=== PATIENT | female | born 1955 | race Hispanic/Latino ===

== ENCOUNTER 2019-03-14 08:23 | Outpatient (CLI) | payer OTHER, SELFPAY ==
--- NOTE | 2019-03-24 19:02 | SLEEP_ITS ---
Split-Night Sleep Study. DATE OF STUDY: 03/14/2019 REASON FOR THIS STUDY: Sleep apnea. HISTORY: This patient is a 63-year-old female, 59 inches tall, weighing 155 pounds with a body mass index of 31.3. She has complaints of nasal allergies and uses Flonase, Zyrtec, and montelukast. She has been told she snores loudly. She is occasionally fatigued during the days. Some nights of sleep are worse than others. She occasionally snores and occasionally loud enough that others complain about it. She occasionally awakens at night with heartburn, belching, and coughing. She does not awaken at night short of breath. She occasionally has trouble sleeping with a cold. She does not gasp for breath at night, is not told by others that she has breathing problems, does not sweat excessively at night or notices her heart pounding irregularly at night. She occasionally falls asleep during the day. She does not fall asleep involuntarily or while driving. She does not have loss of muscle tone with strong emotion. She rarely has daytime difficulty due to excessive sleepiness. She does not feel paralyzed on waking or falling asleep. Occasionally has vivid dreamlike scenes upon awakening or falling asleep, is never afraid to go to sleep and denies nightmares. She occasionally remembers her dreams, has racing thoughts, occasionally feels sad, depressed, or anxious, occasionally has muscular tension and notices parts of her body jerking. She does not kick at night nor does she have crawly achy feelings in her legs. She rarely has leg pain at night. She denies morning jaw pain. She does not grind her teeth. She occasionally is bothered by pain during the day and at night, wakes up feeling stiff in the morning with sore achy muscles and neck and spine pain. She has insomnia on occasion. Normal bedtime is 9-10 p.m. taking less than 15 minutes to fall asleep, occasionally waking once at night for anywhere between 5 and 15 minutes. During this time, she will toss and turn. Occasionally get up and watch TV. She will only do this if she is awake for 30 to 45 minutes. She wakes in the morning at 6:00 a.m. On the weekends, she may go to bed an hour or 2 later and wake up an hour or 2 later. She denies taking regular naps. A short nap may feel refreshing. She is drowsy in the morning on occasion for 1 hour. MEDICAL COMORBIDITIES: Depression which is situational after her father's and her sister stroke. Occasional acid reflux, seasonal allergies, hypothyroidism, hyperlipidemia. MEDICATIONS: 1. Zyrtec 10 mg a day. 2. Montelukast 10 mg a day. 3. Flonase 2 sprays daily. 4. Levothyroxine 50 mcg daily. 5. Aspirin 81 mg a day. 6. Fish oil 1000 mg daily. HABITS: Never smoked tobacco. Caffeine, 1 cup in the morning. Social alcohol. DESCRIPTION OF THE STUDY: On the Bronson Sleepiness Scale, her score is 8. This was conducted as a split-night nocturnal polysomnogram using the same and multiple channel system including EOG, EEG, submental EMG, EKG, nasal and oral airflow using thermistors, nasal pressure sensors, chest and abdominal belts, body position data and pulse oximetry. The study was scored using CMS guidelines. Duration of the baseline was 128.9 minutes. The sleep time was 115.8 minutes. Sleep efficiency was 89.8%. Sleep latency was 10.1 minute and there was no REM. She spent 3 minutes awake after sleep onset. Sleep architecture showed 10.8% stage 1 sleep, 73.2% stage 2 sleep, 16.0% stage 3 sleep and no REM. She spent 92.7% of this portion supine. The apnea-hypopnea index was 18.1 all obstructive events. She had 2 obstructive apneas, 33 obstructive hypopneas in supine non-REM. There were no events in nonsupine sleep. The lowest desaturation was 82%. She had 34 desaturatio
== END 2019-03-14 08:24 | disposition home or self-care (01) ==
LOC: ANHCSM 08:23
PROVIDERS: PCP Family Medicine; Visit Provider Family Medicine
DX: G47.30 Sleep apnea, unspecified (principal)
CPT/HCPCS: 95811

== ENCOUNTER 2019-07-01 11:51 | Observation (INO) | payer OTHER, SELFPAY ==
[2019-07-01] VITALS (11 sets, daily range): BP systolic 128–175; BP diastolic 77–103; PULSE 78–113; RESP 15–20; TEMP 36.5–36.7; O2SAT 97–100; BMI 28.9
--- NOTE | ~2019-07-01 | XR_ITS ---
XR chest 1V portable DATE: 07/03/2019 13:15 INDICATION: Post pleural biopsy chest radiograph TECHNIQUE: Portable upright AP chest on 07/03/2019 at 1315 hours COMPARISON: 07/03/2019 CT-guided percutaneous needle biopsy images 07/01/2019 CT pulmonary scan 06/30/2021 view chest FINDINGS: Again noted is ill-defined increased density overlying the right mid chest consistent with pleural-based mass. There is no evidence of pneumothorax following CT-guided BX needle biopsy earlier today. Normal heart size. IMPRESSION: No evidence of iatrogenic post-pleural biopsy pneumothorax Reviewed, dictated and finalized at location A.
--- NOTE | ~2019-07-01 | NM_ITS ---
EXAMINATION: NM benita stress w perfusion DATE: 07/03/2019 08:09 INDICATION: Chest tightness TECHNIQUE: Rest images were obtained following intravenous administration of 10 mCi Tc99m tetrofosmin (Myoview). The patient was infused intravenously with Lexiscan (Regadenoson). Then, 30 mCi Tc99m tet rofosmin (Myoview) was administered intravenously, and stress images were obtained. Data was reconstr ucted into short axis and horizontal and vertical long axis SPECT images. Gated SPECT images were als o obtained. COMPARISON: None. FINDINGS: There is no definite reversible or fixed perfusion abnormality to suggest ischemia or infar ction. There is normal left ventricular chamber size, wall motion and ejection fraction. Left ventr icular ejection fraction measures >70%. IMPRESSION: 1. Normal myocardial perfusion at rest and during stress. 2. Left ventricular ejection fraction measuring >70%. Reviewed, dictated and finalized at location A.
--- NOTE | ~2019-07-01 | CT_ITS ---
EXAMINATION: CT biopsy pleura DATE: 07/03/2019 12:04 INDICATION: Large right pleural mass TECHNIQUE: The procedure including the risks and benefits was discussed with the patient. Risks discu ssed included infection, bleeding, pneumothorax and allergic reaction. The patient understood the ris ks and agreed to proceed. The patient was placed prone. The skin overlying the posterior right chest wall was prepped and draped in sterile fashion. Anesthetic was administered with 1% lidocaine subcu taneously. A 19 gauge outer needle was advanced under CT guidance to the lesion of interest. A 20 ga uge core biopsy needle was then used to obtain 3 core biopsy specimens. The needle was removed and th e entry site was cleaned and dressed. There were no immediate complications. The mAs was manually de creased to minimize radiation to suggest. The dose-length product was 78.96 mGy-cm. FINDINGS: CT images demonstrate the outer needle tip just within a 7.3 x 2.1 cm lobular mass extendin g along the intercostal space between the posterior right sixth and seventh ribs. The patient noted a n atypical greater amount of pain with biopsy along with electric jolt sensation extending along the intercostal space which further supports suspicion of neurogenic neoplasm such as schwannoma or perip heral nerve sheath tumor. IMPRESSION: 1. Successful CT-guided biopsy of a right posterior pleural-based mass. Reviewed, dictated and finalized at location A.
--- NOTE | ~2019-07-01 | XR_ITS ---
XR chest 2V DATE: 07/01/2019 12:19 INDICATION: Mid chest pain TECHNIQUE: PA and lateral views COMPARISON: None FINDINGS: There is an approximately 3 cm posterior mid right chest pleural-based opacity. Otherwise no pulmonary infiltrate or consolidation, pleural effusion or pulmonary vascular congestion or pneumothorax is detected. Normal heart size. No hilar or mediastinal enlargement. There is aortic unfolding. Surgical clips, right upper quadrant, consistent with cholecystectomy. IMPRESSION: Approximately 3 cm posterior pleural-based mid right chest opacity; consider CT thorax fo r further evaluation Reviewed, dictated and finalized at location A. IMPRESSION: Approximately 3 cm posterior pleural-based mid right chest opacity; consider CT thorax for further evaluation
--- NOTE | ~2019-07-01 | CT_ITS ---
EXAMINATION: CTA chest PE protocol DATE: 07/01/2019 13:16 INDICATION: TECHNIQUE: Computed tomography (CT) pulmonary angiogram of the chest was performed with 100 mL Omnipa que-350 intravenous contrast. Additional 3D reconstructions utilizing coronal maximum intensity proje ction (MIP) were performed. The dose-length product was 311.97 mGy-cm. COMPARISON: None FINDINGS: Excellent contrast opacification of the pulmonary arteries. There is mild streak artifact from dense contrast in the superior vena cava and right atrium. Mild scattered respiratory motion artifact which does not significantly limit evaluation. No pulmonary embolism there is a elongated lobular mass ext ending 7.5 cm medial to lateral along the right sixth-and seventh intercostal space. The mass measure s up to 3.0 x 2.3 cm in orthogonal dimensions. It is indeterminate whether the mass arises from the p leura or from within the intercostal space. The pattern of extension however as well as the acute ang ulation of fat extending between the lung and the margins of the mass would favor the latter, possibl y representing a neurogenic tumor. Lungs are otherwise clear with no pneumonia, pulmonary edema, pleu ral effusion or pneumothorax. Heart size is normal. No pericardial effusion. Thoracic aorta is normal in caliber with no dissection. No pathologically enlarged thoracic lymphadenopathy. Bilateral breast implants. Cholecystectomy clips at the gallbladder fossa. Calcification in the left hepatic lobe con sistent with old granulomatous disease. Moderate thoracic spondylosis. IMPRESSION: 1. No pulmonary embolism or other acute cardiopulmonary disease. 2. 7.5 x 3.0 x 2.3 cm mass extending along the posterior pleura of the right lower lobe unclear wheth er pleural or more likely subpleural arising from the intercostal tissues. This concerning for neopla sm which could be either benign or malignant. Location and pattern of growth suggests possible schwan noma or neurofibroma. Consider CT-guided biopsy for definitive determination. Reviewed, dictated and finalized at location A. IMPRESSION: 1. No pulmonary embolism or other acute cardiopulmonary disease. 2. 7.5 x 3.0 x 2.3 cm mass extending along the posterior pleura of the right lo wer lobe unclear whether pleural or more likely subpleural arising from the int ercostal tissues. This concerning for neoplasm which could be either benign or malignant. Location and pattern of growth suggests possible schwannoma or neuro fibroma. Consider CT-guided biopsy for definitive determination.
--- NOTE | 2019-07-01 11:54 | ED.CHESTPAIN ---
HPI - Chest Pain General Chief Complaint: Chest Pain Stated Complaint: cp Time Seen by Provider: 07/01/19 11:53 Source: patient Mode of arrival: ambulatory Limitations: no limitations History of Present Illness HPI narrative: Patient is a 64-year-old female with a history of hyperlipidemia who presents for evaluation of chest pain. Pain is currently mild in nature. Pain is described as sharp, pressure in nature as if a elephant was sitting on her chest. 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 Patient was not doing any exertional activity this morning and the chest pain began, it is lasted over an hour, it did improve with 2 nitroglycerin that the patient took at the primary care office that she works at. Patient reported that the chest pain radiated to her left jaw, left neck and left arm. She also took an aspirin there. Patient's last stress test was 3 years ago and was normal. Patient has borderline hyperlipidemia but is managed through diet modification. No history of hypertension or diabetes. Patient has a positive family history of coronary artery disease. Related Data Allergies Allergy/AdvReac Type Severity Reaction Status Date / Time cephalexin Allergy Severe Hives / Verified 01/23/18 13:09 Red Face Review of Systems Review of Systems: Narrative: CONSTITUTIONAL: Denies fever, reports mild diaphoresis CARDIOVASCULAR: Reports chest pain, denies shortness of breath RESPIRATORY: Denies cough or dyspnea. GASTROINTESTINAL: Denies abdominal pain, reports nausea SKIN: Denies rash MUSCULOSKELETAL: Denies back pain NEUROLOGIC: Denies headache PMFSH Past Medical History Medical History Achilles tendon rupture Acid reflux Allergic rhinitis Anxiety Depression Hyperlipidemia Surgical History Surgical History H/O: section History of cholecystectomy Social History Social History (Updated 07/01/19 @ 12:15 by Liat Renee MD) Smoking status: Never smoker Alcohol intake: current Substance use: never Gender identity (if verbalized by the patient): Female Exam Narrative: Exam Narrative: GENERAL: Awake, alert, conversant HEAD: Normocephalic, atraumatic. EYES: PERRLA and EOMI. ENT: Nares clear, no rhinorrhea or epistaxis. Mucous membranes moist. NECK: Supple. CHEST: No respiratory distress, breathing even and non labored, no chest wall tenderness HEART: Tachycardic rate, sinus rhythm ABDOMEN:Non distended, non tender EXTREMITIES: Normal range of motion. No edema. SKIN: Warm, dry, no rash. NEURO:No focal deficits. Alert and oriented x3 Course Course Emergency Course: Patient presented to the emergency department for evaluation of chest pain. At the time of initial assessment, ABCs are intact, vital signs notable for mild tachycardia. Laboratory results show no elevation in troponin. EKG does show some anterior depressions that resolved with repeat EKG after administration of nitro, morphine. No recurrent pain in the ER. Chest x-ray imaging did show a right lung mass, CT better characterize this. At this point, the patient's pain is all left-sided, and her pain does seem more anginal in nature, thus I do not feel that this mass is currently causing her symptoms, but obviously will require a close work-up. I spoke with the patient's primary care physician regarding this, and the patient was updated as to the results of her imaging studies. I spoke with on-call student services counselor, as well as the hospitalist regarding the patient, and she will be admitted to the [facility] for cardiac work-up. Vital Signs Vital signs: Vital Signs Temperature 36.7 C 07/01/19 11:53 Pulse Rate 113 H 07/01/19 11:53 Respiratory Ra
--- NOTE | 2019-07-01 12:02 | ECG_ITS ---
Measurements Intervals [place] Rate: 107 P: 19 WV: 182 QRS: 3 QRSD: 91 T: -22 QT: 316 QTc: 422 Interpretive Statements SINUS TACHYCARDIA NONSPECIFIC ST & T-WAVE ABNORMALITY- DIFFUSE LEADS BASELINE WANDER- I, II, III, AVR, AVL, AVF, V4-V6 ABNORMAL ECG Electronically Signed On 07-01-2019 12:36:52 CDT by Rufus Adams D.O.
[2019-07-01 12:15] LABS: Basophils Absolute Auto 0.1 K/mm3 (0.0-0.1); Basophils Percent Auto 0.8 % (0.2-1.2); Eosinophils Absolute Auto 0.1 K/mm3 (0-0.3); Eosinophils Percent Auto 2.1 % (0-4.4); Hemoglobin 14.9 g/dL (12.0-15.0); Immature Granulocyte Absolute 0.06 K/mm3 (0.00-0.031); Immature Granulocyte Percent A 0.9 % (0-0.5); Lymphocytes Absolute Auto 2.68 K/mm3 (0.9-3.2); Lymphocytes Percent Auto 40.7 % (18.3-44.2); Mean Corpuscular HGB Conc 33.9 g/dl (32-36); Mean Corpuscular Hemoglobin 30.5 pg (26-34); Mean Corpuscular Volume 90.2 fl (80-100); Monocytes Absolute Auto 0.5 K/mm3 (0.1-0.6); Monocytes Percent Auto 7.1 % (2.6-8.5); Neutrophils Absolute Auto 3.2 K/mm3 (1.3-6.7); Neutrophils Percent Auto 48.4 % (45.5-73.1); Platelet Count Result 285 k/mm3 (150-375); Red Blood Count 4.88 M/mm3 (4.2-5.4); White Blood Count 6.6 K/mm3 (4.5-10.0)
--- NOTE | 2019-07-01 12:16 | ECG_ITS ---
Measurements Intervals [place] Rate: 84 P: 19 CO: 166 QRS: -8 QRSD: 105 T: -8 QT: 357 QTc: 423 Interpretive Statements SINUS RHYTHM NONSPECIFIC T-WAVE ABNORMALITY- ANTEROLAT/INF LEADS BASELINE ARTIFACT- I, II, III, AVF BORDERLINE ECG Electronically Signed On 07-01-2019 12:59:00 CDT by Rufus Adams D.O.
[2019-07-01 12:27] LABS: Prothrombin Time 12.5 Seconds (11.1-14.7)
[2019-07-01 12:28] LABS: Blood Urea Nitrogen 10 mg/dL (7-17); Calcium 9.2 mg/dL (8.4-10.2); Carbon Dioxide 27 mmol/L (22-30); Chloride 101 mmol/L (98-107); Estimated Glomerular Filt Rate > 60; Glucose 118 mg/dL (65-105); Partial Thromboplastin Time 24.1 SECONDS (22.3-36.8); Potassium 3.1 mmol/L (3.4-5.0); Sodium 136 mmol/L (137-145)
[2019-07-01] MEDS: SODIUM CHLORIDE 0.9% IV 1,000 ML 999 ML IV CONT (12:35)
[2019-07-01] MEDS: ACETAMINOPHEN 500 MG TABLET 1000 MG PO (12:38)
[2019-07-01] MEDS: ASPIRIN 81 MG CHEWABLE TABLET 243 MG PO (12:38)
[2019-07-01] MEDS: ONDANSETRON INJ 4 MG/2 ML VIAL IV PUSH ×2 (12:39→21:44)
[2019-07-01] MEDS: MORPHINE SULFATE 4 MG/ML INJ IV PUSH ×3 (12:39→21:51)
[2019-07-01 12:40] LABS: Troponin I < 0.012 ng/mL (0.000-0.034)
--- NOTE | 2019-07-01 13:07 | PC.NURSE ---
PT TO CT AT THIS TIME IN STRETCHER. WILL MEDICATE PER PROVIDER ORDER UPON HER RETURN.
[2019-07-01] MEDS: NITROGLYCERIN OINTMENT 1 INCH DOSE TRANSDERM (13:24)
[2019-07-01 15:40] LABS: Troponin I < 0.012 ng/mL (0.000-0.034)
--- NOTE | 2019-07-01 17:00 | PM.IMHP ---
H&P: HPI History of Present Illness Chief complaint: Chest pain. Narrative: Francheska Cooley is a very pleasant 64-year-old female with history of kidney stones, hyperlipidemia treated with lifestyle modifications, obstructive sleep apnea, and situational depression with anxiety who presented to the emergency department earlier today for evaluation of chest pain. 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 Not long prior to arrival, she and her co-worker were talking about some stressors in their lives when the patient developed chest pressure just left of the midsternal region which seem to radiate into the neck, shoulders, and upper back. She did have mild shortness of breath with that as well as nausea, feelings of anxiety, and tingling in the left arm that she ultimately notice in the right arm as well. At that time she took her blood pressure, and reports that it was 220/118. She took nitroglycerin x2 that they had at the clinic may be with a little bit of improvement. Troponins have been negative x3 without acute ST changes on EKG. Patient thinks that her chest pain may be related to increased stressors recently, including her significant other currently being hospitalized and 2 recent losses in the family within the past several weeks. At the time my evaluation she really does not have much discomfort. She denies GERD and indigestion symptoms. No musculoskeletal injuries. She had a stress test a couple of years ago which was unremarkable. Of note, she was found to have a right lower lobe mass, and with further questioning she denies a smoking history and reports no asbestos exposure, lymphadenopathy, or weight loss. Review of Systems Review of Systems: Narrative: Twelve systems were reviewed with pertinent positives and negatives as per HPI. She wears glasses. Occasional stress headaches. She has year round allergies and currently complains of some sinus congestion and postnasal drip. No known history of cardiac disease. She denies palpitations and history of cardiac dysrhythmia. She is quite active and denies exertional chest pain. She does have high cholesterol and hypertriglyceridemia, for which she has made lifestyle modification changes. She was diagnosed with moderate sleep apnea several years ago, but never used a CPAP machine. The only symptom she had of that was of snoring. She denies daytime somnolence. No pleuritic pain. No cough or exertional shortness of breath. Suffers from occasional constipation. No dysuria. Except as documented, all other systems were reviewed and are negative. [facility] Past Medical History Medical History (Updated 07/01/19 @ 21:10 by Shanta Delvalle PA-C) Colon polyps Depression with anxiety Dyslipidemia Eczema Kidney stones Obstructive sleep apnea She does not use a CPAP. Osteoarthritis Seasonal allergies Surgical History Surgical History (Updated 07/01/19 @ 21:04 by Shanta Delvalle PA-C) History of 3 sections History of Achilles tendon repair Right. History of breast implant History of cholecystectomy History of tonsillectomy Family History Family History Father Acute myocardial infarction Hypertension Sibling Asthma History of blood clots Cerebrovascular accident Vascular dementia Hypertension Atrial fibrillation Diabetes mellitus Mother Hypertension Diabetes mellitus Social History Social History (Updated 07/01/19 @ 21:05 by Shanta Delvalle PA-C) Social History: The patient lives in [place] with her significant other. She is originally from [place]. She has 3 grown children. 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 She drinks alcohol socially and in moderation. No illicit drug use. She designates her daughter, Stacie Plasencia Francois, a
--- NOTE | 2019-07-01 17:09 | ADMGEN ---
This patient, Francheska Cooley, was admitted to IMU Room 202-01 on 07-01-2019 at 1650. Patient/family oriented to hospital policies and general routines including ID bracelet, bed and alarms, visiting hours, pain management, procedures, bathroom and other care routines, personal items, smoking policy, room service/diet, and visiting hours. Valuables list has been completed. Information on how to activate the Rapid Response Team has been discussed. Patient/Family are encouraged to report perceived risks to care and to ask questions if they do not understand what they are told or what they should do.
[2019-07-01 19:10] LABS: Troponin I < 0.012 ng/mL (0.000-0.034)
[2019-07-01] MEDS: FLUTICASONE PROPIONATE 0.05% NA SPR 16 GM BTL (*BKC) 1 SPRAY NASAL (21:41)
[2019-07-01] MEDS: CITALOPRAM HYDROBROMIDE 20 MG TABLET PO (21:42)
[2019-07-01] MEDS: ASPIRIN 81 MG ENTERIC TABLET PO (21:42)
[2019-07-01] MEDS: MONTELUKAST SODIUM 10 MG TABLET PO (21:42)
[2019-07-01] MEDS: LORATADINE 10 MG TABLET PO (21:42)
[2019-07-01] MEDS: CHOLECALCIFEROL 1,000 UNIT TABLET 5000 UNITS PO (21:43)
[2019-07-02] VITALS (16 sets, daily range): BP systolic 118–145; BP diastolic 70–80; PULSE 60–90; RESP 14–20; TEMP 36.2–37; O2SAT 96–100
[2019-07-02] MEDS: ACETAMINOPHEN 325 MG TABLET 650 MG PO ×2 (02:08→09:33)
[2019-07-02] MEDS: ONDANSETRON INJ 4 MG/2 ML VIAL (02:10)
[2019-07-02 05:46] LABS: Alanine Aminotransferase 37 U/L (4-35); Albumin Level 3.8 g/dL (3.5-5.1); Alkaline Phosphatase 53 U/L (38-126); Aspartate Amino Transferase 47 U/L (14-36); Bilirubin,Total 0.4 mg/dL (0.2-1.3); Blood Urea Nitrogen 8 mg/dL (7-17); Calcium 8.6 mg/dL (8.4-10.2); Carbon Dioxide 31 mmol/L (22-30); Chloride 103 mmol/L (98-107); Cholesterol 166 mg/dL (0-200); Estimated Glomerular Filt Rate > 60; Glucose 81 mg/dL (65-105); HDL Direct 37 mg/dL; Potassium 3.7 mmol/L (3.4-5.0); Sodium 138 mmol/L (137-145); Triglycerides 124 mg/dL (<150)
[2019-07-02 05:57] LABS: LDL Cholesterol Direct 100 mg/dL
[2019-07-02] MEDS: FLUTICASONE PROPIONATE 0.05% NA SPR 16 GM BTL (*BKC) 1 SPRAY NASAL ×2 (08:20→18:09)
--- NOTE | 2019-07-02 09:39 | ECG_ITS ---
Measurements Intervals [place] Rate: 81 P: 24 GA: 180 QRS: 7 QRSD: 93 T: 0 QT: 313 QTc: 365 Interpretive Statements SINUS RHYTHM NONSPECIFIC T-WAVE ABNORMALITY- ANTEROLAT/INF LEADS BASELINE ARTIFACT- V5 BORDERLINE ECG Electronically Signed On 07-02-2019 10:23:03 CDT by Rufus Adams D.O.
--- NOTE | 2019-07-02 10:53 | EST_ITS ---
Patient Info Name: Francheska Cooley Age: 64 years : 1955 Gender: Female Ht: 59 in Wt: 145 lbs BSA: 1.68 m2 Exam Date: 07/02/2019 2:20 PM Exam Location: [facility] Stress Patient Status: Inpatient Admit Date: 07/01/2019 Staff Ordering Physician: Asim Boswell MD Attending Provider: Mert Neal MD Exercise Technologist: Giovany Muller, RDCS, RT Nurse: Erinn Meadows, ANP, ACNP-BC Exam Type: CA stress benita w NM Study Info A regadenoson stress test was performed. Summary 1. Please correlate with nuclear medicine images, reported separately. 2. No abnormal ST-T wave changes with lexiscan. Protocol: Lexiscan Stress ECG Details Stage: REST Duration (min): 8 min : 11 sec HR (bpm): 71 SBP (mmHg): 129 DBP (mmHg): 75 Stage: REST Duration (min): 9 min : 18 sec HR (bpm): 69 SBP (mmHg): 129 DBP (mmHg): 75 Stage: STAGE 1 Duration (min): 1 min : 0 sec HR (bpm): 104 SBP (mmHg): 131 DBP (mmHg): 79 Stage: RECOVERY Duration (min): 1 min : 0 sec HR (bpm): 101 SBP (mmHg): 131 DBP (mmHg): 79 Stage: RECOVERY Duration (min): 2 min : 0 sec HR (bpm): 94 SBP (mmHg): 131 DBP (mmHg): 79 Stage: RECOVERY Duration (min): 3 min : 0 sec HR (bpm): 96 SBP (mmHg): 117 DBP (mmHg): 75 Stage: RECOVERY Duration (min): 3 min : 35 sec HR (bpm): 93 SBP (mmHg): 117 DBP (mmHg): 75 Rest HR: 69 bpm Peak HR: 108 bpm Rest Sys BP: 129 mmHg Peak Sys BP: 131 mmHg Max Pred HR: 158 bpm % Max Pred HR: 68 % Target HR: 134 bpm Max RPP: 14,148 bpm*mmHg Target HR Summary: Hemodynamic response to exercise was normal BP Response: Normal blood pressure response Termination Reason: Completed protocol Cardiac Symptoms: Chest pain Total Time: 1 min : 0 sec Rest Becker BP: 75 mmHg Peak Becker BP: 79 mmHg Total Dose: 0.4 mg Resting ECG Normal sinus rhythm. Minor resting ST/T wave changes. Stress ECG No abnormal ST/T wave changes with exercise. Arrhythmias None. Report Signatures
--- NOTE | 2019-07-02 10:55 | PM.CNCAR ---
Assessment and Plan Assessment and plan (1) Chest pain: Code(s): R07.9 - Chest pain, unspecified Status: Acute Assessment and Plan: Probably related to combination of severe high blood pressure and anxiety or combination there of. Cannot exclude angina completely although troponins are negative and EKG is unremarkable. 2D echocardiogram with Dopplers ordered and will be reviewed. Will order Lexiscan myocardial perfusion study for ischemic evaluation. Discontinue nitroglycerin paste. Continue aspirin. Will add low-dose carvedilol 3.125 mg p.o. b.i.d. both for blood pressure and possible anginal purposes. She likely would benefit from some lisinopril also but will hold off for now until further workup is complete (2) Lung mass: Code(s): R91.8 - Other nonspecific abnormal finding of lung field Status: Acute Assessment and Plan: Will obviously need further workup soon. Will consult Dr. Forde. (3) Dyslipidemia: Code(s): E78.5 - Hyperlipidemia, unspecified Status: Acute Assessment and Plan: Mild. Intolerant to statins in the past (4) Obstructive sleep apnea: Code(s): G47.33 - Obstructive sleep apnea (adult) (pediatric) Status: Acute Assessment and Plan: In the process of getting a CPAP (5) Elevated blood pressure reading: Code(s): R03.0 - Elevated blood-pressure reading, without diagnosis of hypertension Status: Acute Assessment and Plan: Likely has undiagnosed hypertension History of Present Illness History of Present Illness Consult date/time: 07/02/19 10:55 Requesting physician: Liat Renee MD Consult reason: chest pain Reason For Visit: Chest pain. Narrative: Reason for admission/consultation: Chest pain Date of service 07/02/2019: History: Patient is a 64-year-old female who has had a lot of stress in her life recently. She had 2 deaths in her family. Her significant other is in this hospital currently dealing with diverticulitis. 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 Yesterday morning she was talked to patient about some anxiety issues and shortly thereafter started to have some chest tightness. It radiated up into her neck and down her arm into her back. It was associated some shortness of breath as well as diaphoresis and nausea. She checked her blood pressure is 160 and then later checked again in was 220/118. She did take some nitroglycerin which did help somewhat. She then took another nitroglycerin which helped more. She decided to come to the emergency department because of the symptoms. She was still having some symptoms at that point and was given morphine and started on nitroglycerin paste. Symptoms then resolved. They have returned this morning. Incidentally she was found have a lung mass on the right side. CT scan was performed and the lung mass measures 7.5 x 3.0 x 2.3 cm mass extended Will along the posterior pleura of the right lower lobe. She has had cardiac workup in the past including a negative stress test in 2017 and a normal cardiac catheterization in 2004. She has had no recent syncope, presyncope, paroxysmal nocturnal dyspnea, orthopnea, edema. She does have sleep apnea but is in the process of getting a CPAP. Review of Systems Review of Systems: All systems reviewed & are unremarkable except as noted in HPI and below Constitutional: Constitutional: Denies weakness Eyes: Eyes: Denies blurry vision ENT: Denies epistaxis Cardiovascular: Cardiovascular: Reports chest pain Respiratory: Respiratory: Reports dyspnea Gastrointestinal: Gastrointestinal: Denies abdominal pain Genitourinary: Genitourinary: Denies hematuria Musculoskeletal: Musculoskeletal: Reports back pain and Denies neck pain Integumentary/Breasts: Skin/Breast: Denies dry skin Neurologic: Denies headache(s) and Denies numbness Psychiatric: Psych
--- NOTE | 2019-07-02 12:26 | PM.CNPUL ---
Assessment and Plan Assessment and plan (1) Lung mass: Code(s): R91.8 - Other nonspecific abnormal finding of lung field Status: Acute Assessment and Plan: Atypical irregular lung mass abutting the right pleura, PLAN: CT guided bx requested for tomorrow; patient understands the risks and benefits Histoplasma urine antigen and serology. d/w Dr Restrepo; incidental finding, nonsmoker, no risk factors for lung cancer. History of Present Illness History of Present Illness Consult date: 07/03/19 Requesting physician: Asim Boswell MD Reason for consult: other (lung mass) Chief complaint: Chest pain. 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 She is a never smoker, had BCG at home in [place], and gets CXR yearly as she cannot have annual PPD. She has had no weight loss, cough, sputum, hemoptysis. Her significant other has had asbestos exposure working as a fire management technician and now is a laborer steel handling at the [employer]. He has been in this hospital for a week on the 3rd floor with first episode of diverticulitis. She has no exposure to chickens, has no pets. Traveled to [place] in January to the beach. June Chest CTA 07/01/2019 1. No pulmonary embolism or other acute cardiopulmonary disease. 2. 7.5 x 3.0 x 2.3 cm mass extending along the posterior pleura of the right lower lobe unclear whether pleural or more likely subpleural arising from the intercostal tissues. This concerning for neoplasm which could be either benign or malignant. Location and pattern of growth suggests possible schwannoma or neurofibroma. Consider CT-guided biopsy for definitive determination. Review of Systems ENT: Comments: seasonal allergies with morning mucus and post nasal drainage Musculoskeletal: Comments: mild OA, takes tylenol PM as needed for pain, has discomfort in distal fingers Integumentary/Breasts: Skin/Breast: Denies rash PMFSH Past Medical History Medical History Colon polyps Depression with anxiety Dyslipidemia Eczema Kidney stones Obstructive sleep apnea She does not use a CPAP. Osteoarthritis Seasonal allergies Surgical History Surgical History (Updated 07/02/19 @ 18:17 by Monserrat Forde MD) History of 3 sections History of Achilles tendon repair Right. History of breast implant History of cholecystectomy History of tonsillectomy and uvula removed 10 years ago due to large tonsils and small airway Family History Family History Father Acute myocardial infarction Hypertension Sibling Asthma History of blood clots Cerebrovascular accident Vascular dementia Hypertension Atrial fibrillation Diabetes mellitus Mother Hypertension Diabetes mellitus Social History Social History Social History: The patient lives in [place] with her significant other. She is originally from [place]. She has 3 grown children. 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 She drinks alcohol socially and in moderation. No illicit drug use. She designates her daughter, Stacie Parrish, as her surrogate decision maker and she wishes to be a full code. Meds Home Medications and Allergies Home Medications Medication Instructions Recorded Confirmed Type aspirin [Adult Low Dose Aspirin] 81 mg PO HS 07/01/19 07/01/19 History cetirizine [Zyrtec] 10 mg PO HS 07/01/19 07/01/19 History cholecalciferol (vitamin D3) 125 mcg PO HS 07/01/19 07/01/19 History [Vitamin D3] citalopram 20 mg PO HS 07/01/19 07/01/19 History fluticasone propionate 1 spray INTRANASAL BID 07/01/19 07/01/19 History montelukast 10 mg PO HS 07/01/19
--- NOTE | 2019-07-02 13:00 | PC.NURSE ---
Patient to Nuclear Medicine for stress test via wheelchair.
--- NOTE | 2019-07-02 15:20 | PC.NURSE ---
Patient returned to room following stress test.
--- NOTE | 2019-07-02 16:25 | PM.IMPN ---
Progress Note: A&P Assessment and Plan (1) Chest pain: Qualifiers: Chest pain type: unspecified Qualified Code(s): R07.9 - Chest pain, unspecified Code(s): R07.9 - Chest pain, unspecified Status: Acute Assessment and Plan: Somewhat atypical. Serial troponin levels negative x3. Telemetry reviewed on 07/02/2019 with sinus rhythm. Cardiology consulted and appreciate input. Patient has completed her Lexiscan stress test with EKG portion normal. Lexiscan images pending. Echocardiogram done today with EF 60-65% and no wall motion abnormalities. Will continue to monitor while awaiting final results of stress test but suspect chest pain is more anxiety related. Hopefully will be able to discharge tomorrow. (2) Lung mass: Code(s): R91.8 - Other nonspecific abnormal finding of lung field Status: Acute Assessment and Plan: CTA chest with finding of 7.5 x 3.0 x 2.3 cm mass extending along the posterior pleura of the right lower lobe unclear whether pleural or more likely subpleural arising from the intercostal tissues concerning for neoplasm which could be either benign or malignant with location and pattern of growth suggests possible schwannoma or neurofibroma. Pulmonology consulted and case discussed with Dr. Forde. Will plan for CT-guided biopsy while here. Histoplasmosis antibody and antigen ordered. Patient on room air. Will continue to monitor. (3) Elevated blood pressure reading: Code(s): R03.0 - Elevated blood-pressure reading, without diagnosis of hypertension Status: Acute Assessment and Plan: Intermittent mild elevated readings on review of blood pressure on 07/02/2019. Now on low-dose carvedilol. Will continue to monitor and adjust as needed. (4) Depression with anxiety: Code(s): F41.8 - Other specified anxiety disorders Status: Acute Assessment and Plan: Patient with significant stressors recently. Will continue her citalopram. Suspect anxiety portion is causing issues with chest pain as noted above. (5) Dyslipidemia: Code(s): E78.5 - Hyperlipidemia, unspecified Status: Acute Assessment and Plan: Triglycerides 124 with total cholesterol 166, LDL 100 and HDL 37. Has previously been intolerant to pravastatin. With current lipid readings will not start statin at this time. (6) Obstructive sleep apnea: Code(s): G47.33 - Obstructive sleep apnea (adult) (pediatric) Status: Acute Assessment and Plan: Has not used CPAP previously but planning to order machine for use. Currently on room air. Will monitor. (7) DVT prophylaxis: Code(s): Z29.9 - Encounter for prophylactic measures, unspecified Status: Acute Assessment and Plan: SCDs. Time Spent With Patient Time with patient: 15 - 25 minutes Subjective Date/time seen: 07/02/19 16:25 Interval history: Date of Service: 07/02/2019. Admitted with chest pain and found to have lung mass. 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 Patient reports she is feeling better today but still has had a few episodes of chest pressure with shortness of breath. Chest pressure does radiate to the neck. She does note CT chest pressure episodes tend to occur when talking about stressful situations and does recall having had similar problem for which she was evaluated with cardiac stress test when going through a divorce in the past. Does have intermittent headache. Slight nausea but no vomiting. No abdominal pain. Review of Systems Review of Systems: Narrative: Feeling better. Constitutional: Constitutional: Denies chills and Denies fever(s) ENT: Denies dysphagia Cardiovascular: Cardiovascular: Reports chest pain (Episodes of chest pressure) and Denies palpitations Respiratory: Respiratory: Reports dyspnea (With episodes of chest pressure) Gas
[2019-07-02] MEDS: carvediloL 3.125 MG TABLET PO ×2 (16:36→20:46)
[2019-07-02] MEDS: LORATADINE 10 MG TABLET PO (20:46)
[2019-07-02] MEDS: CITALOPRAM HYDROBROMIDE 20 MG TABLET PO (20:46)
[2019-07-02] MEDS: MONTELUKAST SODIUM 10 MG TABLET PO (20:46)
[2019-07-02] MEDS: ASPIRIN 81 MG ENTERIC TABLET PO (20:46)
--- NOTE | 2019-07-02 21:10 | ECHO_ITS ---
Patient Info Name: Francheska Cooley Age: 64 years : 1955 Gender: Female Ht: 59 in Wt: 143 lbs BSA: 1.67 m2 HR: 62 bpm BP: 120 / 77 mmHg Heart Rhythm: Sinus Rhythm Technical Quality: Good Exam Date: 07/02/2019 7:43 AM Exam Location: [facility] Pul[facility] Patient Status: Inpatient Admit Date: 07/01/2019 Staff Ordering Physician: Shanta Delvalle PA-C County Demonstrator: Giovany Muller, WILD, RT Attending Provider: Mert Neal MD Referring Physician: Adelia CONTRERAS; Exam Type: CA echo doppler color flow Study Info Indications R07.89 - Other chest pain Complete two-dimensional, color flow and Doppler transthoracic echocardiogram is performed. Summary 1. Left ventricular chamber dimension is normal. 2. Left ventricular systolic function is normal, estimated at 60-65%. 3. There is mildly increased left ventricular wall thickness. 4. Left ventricular septal wall motion is normal. 5. The left ventricular diastolic function is normal. 6. Global longitudinal strain is abnormal at -14 %. 7. Right ventricular chamber dimension is mildly enlarged. 8. Right ventricular systolic function is reduced. 9. Left atrial chamber dimension is moderately enlarged. 10. There is mild tricuspid valve regurgitation. 11. There is mild pulmonic regurgitation. Left Ventricle Left ventricular chamber dimension is normal. Left ventricular systolic function is normal, estimated at 60-65%. There is mildly increased left ventricular wall thickness. Left ventricular septal wall motion is normal. The left ventricular diastolic function is normal. Global longitudinal strain is abnormal at -14 %. Right Ventricle Right ventricular chamber dimension is mildly enlarged. Right ventricular systolic function is reduced. Left Atria Left atrial chamber dimension is moderately enlarged. Right Atria Right atrial chamber dimension is normal. Aortic Valve The aortic valve is trileaflet. There is mild aortic valve sclerosis. There is no aortic valve stenosis. There is trace aortic valve regurgitation. Pulmonic Valve The pulmonic valve is normal. There is no pulmonic valve stenosis. There is mild pulmonic regurgitation. Mitral Valve The mitral valve has normal leaflets. There is no mitral valve stenosis. There is trace mitral valve regurgitation. Tricuspid Valve The tricuspid valve leaflets are normal. There is no significant tricuspid valve stenosis. There is mild tricuspid valve regurgitation. No pulmonary hypertension, estimated pulmonary arterial systolic pressure is 31 mmHg. Pericardium/Pleural The pericardium appears normal. There is no pericardial effusion. Inferior Vena Cava Normal inferior vena cava with >50% collapse upon inspiration consistent with normal right atrial pressure, 5 mmHg. Aorta The aortic root size at the sinus of Valsalva is normal. The prox ascending aorta size is normal. Left Ventricular Outflow Tract Name Value Normal LVOT 2D LVOT Diameter 2.0 cm LVOT Doppler LVOT Peak Gradient 2 mmHg LVOT Mean Gradient 1 mmHg
[2019-07-03] VITALS (15 sets, daily range): BP systolic 118–143; BP diastolic 69–82; PULSE 62–85; RESP 17–20; TEMP 35.6–36; O2SAT 97–100
[2019-07-03] MEDS: carvediloL 3.125 MG TABLET PO (08:47)
[2019-07-03] MEDS: FLUTICASONE PROPIONATE 0.05% NA SPR 16 GM BTL (*BKC) 1 SPRAY NASAL (08:47)
--- NOTE | 2019-07-03 10:12 | PM.IMPN ---
Progress Note: A&P Assessment and Plan (1) Chest pain: Qualifiers: Chest pain type: unspecified Qualified Code(s): R07.9 - Chest pain, unspecified Code(s): R07.9 - Chest pain, unspecified Status: Acute Assessment and Plan: Somewhat atypical. Serial troponin levels negative x3. Telemetry reviewed on 07/03/2019 with sinus rhythm. Cardiology consulted and appreciate input. Lexiscan stress test with EKG portion normal. Lexiscan images negative. Echocardiogram with EF 60-65% and no wall motion abnormalities. Appears to be anxiety driven at point. Discussed with Cardiology. Plan to discharge later today after biopsy of lung mass as long as stable. (2) Lung mass: Code(s): R91.8 - Other nonspecific abnormal finding of lung field Status: Acute Assessment and Plan: CTA chest with finding of 7.5 x 3.0 x 2.3 cm mass extending along the posterior pleura of the right lower lobe unclear whether pleural or more likely subpleural arising from the intercostal tissues concerning for neoplasm which could be either benign or malignant with location and pattern of growth suggests possible schwannoma or neurofibroma. Pulmonology consulted and case discussed with Dr. Forde. Plan for CT-guided biopsy this morning. Histoplasmosis antibody and antigen ordered and results pending. Patient remains on room air. Will continue to monitor. (3) Elevated blood pressure reading: Code(s): R03.0 - Elevated blood-pressure reading, without diagnosis of hypertension Status: Acute Assessment and Plan: Blood pressure reviewed on 07/03/2019 with still occasional mild elevated readings. Plan to continue low-dose carvedilol at this point. Will continue to monitor while here and will be followed as an outpatient. (4) Depression with anxiety: Code(s): F41.8 - Other specified anxiety disorders Status: Acute Assessment and Plan: Patient with significant stressors recently. Will continue her citalopram. Discussed with patient. Will also have low-dose Xanax available as needed. (5) Dyslipidemia: Code(s): E78.5 - Hyperlipidemia, unspecified Status: Acute Assessment and Plan: Triglycerides 124 with total cholesterol 166, LDL 100 and HDL 37. Has previously been intolerant to pravastatin. With current lipid readings, will not start statin at this time. (6) Obstructive sleep apnea: Code(s): G47.33 - Obstructive sleep apnea (adult) (pediatric) Status: Acute Assessment and Plan: Has not used CPAP previously but planning to order machine for use. Remains on room air. (7) DVT prophylaxis: Code(s): Z29.9 - Encounter for prophylactic measures, unspecified Status: Acute Assessment and Plan: SCDs. Time Spent With Patient Time with patient: 15 - 25 minutes Subjective Date/time seen: 07/03/19 10:12 Interval history: Date of Service: 07/03/2019. Admitted with chest pain and found to have lung mass. Does admit to anxiety. Has still had episodes of chest pain/pressure with tingling and shortness of breath but feels these are all stress related. No nausea or vomiting today. No headache. Hoping to go home. Review of Systems Constitutional: Constitutional: Denies chills and Denies fever(s) ENT: Denies dysphagia Cardiovascular: Cardiovascular: Reports chest pain (Episodes of chest pressure) and Denies palpitations Respiratory: Respiratory: Reports cough and Reports dyspnea (With episodes of chest pressure) Gastrointestinal: Gastrointestinal: Denies abdominal pain, Denies dysphagia, Reports nausea and Denies vomiting Genitourinary: Genitourinary: Reports no additional female genitourinary complaints Musculoskeletal: Musculoskeletal: Reports no additional musculoskeletal complaints Integumentary/Breasts: Skin/Breast: Denies rash Neurologic: Reports behavioral changes and Denies headache(s) Psychiatric: Psychiatric: Repor
[2019-07-03] MEDS: ALPRAZOLAM 0.25 MG TABLET PO (10:26)
--- NOTE | 2019-07-03 10:35 | PC.NURSE ---
Patient to CT for biopsy via wheelchair.
--- NOTE | 2019-07-03 10:41 | PM.PNCARD ---
Progress Note: A&P Assessment and Plan (1) Chest pain: Qualifiers: Chest pain type: unspecified Qualified Code(s): R07.9 - Chest pain, unspecified Code(s): R07.9 - Chest pain, unspecified Status: Acute Assessment and Plan: Stress test is normal. Discomfort likely related to combination of anxiety and high blood pressure. Dr. Restrepo start her on some p.r.n. anxiety meds (2) Lung mass: Code(s): R91.8 - Other nonspecific abnormal finding of lung field Status: Acute Assessment and Plan: Biopsy today then likely discharge (3) Dyslipidemia: Code(s): E78.5 - Hyperlipidemia, unspecified Status: Acute Assessment and Plan: Mild. Intolerant to statins in the past (4) Obstructive sleep apnea: Code(s): G47.33 - Obstructive sleep apnea (adult) (pediatric) Status: Acute Assessment and Plan: In the process of getting a CPAP (5) Elevated blood pressure reading: Code(s): R03.0 - Elevated blood-pressure reading, without diagnosis of hypertension Status: Acute Assessment and Plan: Continue carvedilol Subjective Date/time seen: 07/03/19 10:41 Interval history: Chief complaint: Chest pain Date of Service: 07/03/2019. Chest pain is better. No shortness of breath. Going for lung biopsy today. Review of Systems Review of Systems: All systems reviewed & are unremarkable except as noted in HPI and below Constitutional: Constitutional: Denies excessive sweating, Denies fatigue, Denies headache(s) and Denies weakness Eyes: Eyes: Denies blurry vision ENT: Denies headache(s), Denies lip swelling, Denies epistaxis and Denies neck pain Cardiovascular: Cardiovascular: Reports chest pain and Reports dyspnea Respiratory: Respiratory: Reports dyspnea Gastrointestinal: Gastrointestinal: Denies abdominal pain Genitourinary: Genitourinary: Denies hematuria Musculoskeletal: Musculoskeletal: Reports back pain, Denies neck pain and Denies numbness Integumentary/Breasts: Skin/Breast: Denies dry skin Neurologic: Denies headache(s), Denies numbness and Denies weakness Psychiatric: Psychiatric: Reports anxiety Endocrine: Endocrine: Denies excessive sweating and Denies fatigue Hematologic/Lymphatic: Hematologic/Lymphatic: Denies easy bleeding and Denies easy bruising Allergic/Immunologic: Allergic/Immunologic: Denies GI upset with certain foods and Denies lip swelling Exam Narrative: Exam Narrative: Alert but anxious Const: General: comfortable HENMT: General nose exam: Normal nares present Eyes: Sclera: sclerae normal Neck: Neck: supple and no JVD Chest: Other: No reproducible chest wall pain to palpation Resp: Auscultation: clear to auscultation bilaterally Cardio: Rate: regular rate Rhythm: regular rhythm Heart sounds: no murmurs GI: Inspection: non-distended Skin: General skin exam: normal color and no erythema Neuro: Cognition (Neuro): normal cognition Speech: normal speech Extrem: General: normal to inspection and no edema Psych: Affect: Anxious affect present Objective Data Vital Signs Vital Signs: Vital Signs - 24 hr 07/02/19 12:00 07/02/19 14:00 07/02/19 16:00 Temperature 37.0 C Pulse Rate 90 69 83 Respiratory Rate 16 Blood Pressure 118/75 Pulse Oximetry 97 07/02/19 16:20 07/02/19 16:36 07/02/19 18:00 Temperature 36.9 C Pulse Rate 84 90 77 Respiratory Rate 16 Blood Pressure 145/71 H Pulse Oximetry 98 07/02/19 19:16 07/02/19 20:00 07/02/19 20:46 Temperature 36.2 C L Pulse Rate 76 74 84 Respiratory Rate 14 18 Blood Pressure 124/80 Pulse Oximetry 97 99 07/02/19 22:00 07/03/19 00:00 07/03/19 00:18 Temperature 35.6 C L Pulse Rate 74 70 65 Respiratory Rate 18 18 Blood Pressure 143/73 H Pulse Oximetry 99 99 07/03/19 02:00 07/03/19 04:00 07/03/19 04:35 Temperature 35.7 C L Pulse Rate 68 74 65 Respiratory Rate 18 20 Blood
--- NOTE | 2019-07-03 11:55 | PC.NURSE ---
Patient returned to room following biopsy.
--- NOTE | 2019-07-03 12:52 | PM.PNPUL ---
Progress Note: A&P Assessment and Plan (1) Lung mass: Code(s): R91.8 - Other nonspecific abnormal finding of lung field Status: Acute Assessment and Plan: right mass noted on chest CT: 7.5 x 3.0 x 2.3 cm mass extending along the posterior pleura of the right lower lobe unclear whether pleural or more likely subpleural arising from the intercostal tissues. She completed biopsy today, results to be completed next week. [facility] may follow up after discharge. Subjective Date/time seen: 07/03/19 12:52 64 yo female has returned from CT guided biopsy. She is feeling stable, had a sensation of tingling aroud nthe side of her ribs when the biopsy was performed. Review of Systems Review of Systems: All systems reviewed & are unremarkable except as noted in HPI and below Exam HENMT: Head: normal to inspection General nose exam: Normal external nose present Face and sinus: normal facial exam Teeth and gingiva: dentition normal Eyes: General: appearance normal, both eyes and all related structures Chest: Chest palpation & inspection: normal inspection of the chest (with small bandage over right lower lat chest from bx) Resp: Effort & Inspection: normal respiratory effort Auscultation: clear to auscultation bilaterally Cardio: Rate: regular rate Rhythm: regular rhythm Heart sounds: S1 normal heart sound present and S2 normal heart sound present Skin: General skin exam: normal color Rashes: no rashes Extrem: General: no clubbing, cyanosis or edema Left upper extremity: joint enlargement noted (mild OA changes left first finger DIP joint) Objective Data Vital Signs Vital Signs: Vital Signs - 24 hr 07/02/19 14:00 07/02/19 16:00 07/02/19 16:20 Temperature 36.9 C Pulse Rate 69 83 84 Respiratory Rate 16 Blood Pressure 145/71 H Pulse Oximetry 98 07/02/19 16:36 07/02/19 18:00 07/02/19 19:16 Temperature 36.2 C L Pulse Rate 90 77 76 Respiratory Rate 14 Blood Pressure 124/80 Pulse Oximetry 97 07/02/19 20:00 07/02/19 20:46 07/02/19 22:00 Temperature Pulse Rate 74 84 74 Respiratory Rate 18 Blood Pressure Pulse Oximetry 99 07/03/19 00:00 07/03/19 00:18 05/21/20 02:00 Temperature 35.6 C L Pulse Rate 70 65 68 Respiratory Rate 18 18 Blood Pressure 143/73 H Pulse Oximetry 99 99 07/03/19 04:00 07/03/19 04:35 07/03/19 05:55 Temperature 35.7 C L Pulse Rate 74 65 71 Respiratory Rate 18 20 Blood Pressure 142/82 H Pulse Oximetry 99 100 07/03/19 08:00 07/03/19 08:10 07/03/19 08:47 Temperature 35.7 C L Pulse Rate 71 62 83 Respiratory Rate 18 Blood Pressure 118/69 Pulse Oximetry 97 07/03/19 10:00 07/03/19 12:42 07/03/19 12:43 Temperature Pulse Rate 74 62 65 Respiratory Rate 18 17 Blood Pressure 118/69 118/69 Pulse Oximetry 97 97 Intake/Output Intake/Output: Intake & Output 06/30/19 07/01/19 07/02/19 07/03/19 23:59 23:59 23:59 23:59 Intake Total 1060 308 300 Output Total 100 3100 425 Balance [phone] -[phone] -955 Meds/Results Medications: Active Medications Generic Name Dose Route Start Last Admin Trade Name Freq PRN Reason Stop Dose Admin Acetaminophen 650 mg 07/01/19 14:18 07/02/19 09:33 Tylenol Tablet PO 650 mg Q4H PRN Administration Mild Pain (1-3) or Fever Alprazolam 0.25 mg 07/03/19 10:13 07/03/19 10:26 Xanax PO 0.25 mg TID PRN Administration Anxiety Aspirin 81 mg 07/01/19 21:00 07/02/19 20:46 Aspirin Ec PO 81 mg HS MATTHEW Administration Carvedilol 3.125 mg 07/02/19 12:00 07/03/19 08:47 Coreg PO 3.125 mg Q12HR MATTHEW Administration Citalopram Hydrobromide 20 mg 07/01/19 21:00 07/02/19 20:46 Celexa PO 20 mg HS MATTHEW Administration Fluticasone Propionate 1 spray 07/01/19 21:00 07/03/19 08:47 Flonase 0.05% Nasal [place] NASAL 1 spray BID MATTHEW Administration Loratadine 10 mg 07/01/19 21:00 07/02/19 20:46 Claritin PO 10 mg HS S
--- NOTE | 2019-07-03 16:34 | PM.DS ---
DS: Admitting Diagnosis Admitting Diagnosis Admitting Diagnosis: Chest pain, unspecified DS: Discharge Diagnosis Discharge Diagnosis (1) Chest pain: Qualifiers: Chest pain type: unspecified Qualified Code(s): R07.9 - Chest pain, unspecified Code(s): R07.9 - Chest pain, unspecified Status: Acute (2) Lung mass: Code(s): R91.8 - Other nonspecific abnormal finding of lung field Status: Acute (3) Elevated blood pressure reading: Code(s): R03.0 - Elevated blood-pressure reading, without diagnosis of hypertension Status: Acute (4) Depression with anxiety: Code(s): F41.8 - Other specified anxiety disorders Status: Acute (5) Dyslipidemia: Code(s): E78.5 - Hyperlipidemia, unspecified Status: Acute (6) Obstructive sleep apnea: Code(s): G47.33 - Obstructive sleep apnea (adult) (pediatric) Status: Acute DS: Summary Hospital Course Reason for hospitalization: Chest pain. Hospital Course: Date of Service of Discharge: July 03, 2019. History of Present Illness: Patient is a very pleasant 64-year-old with known hyperlipidemia, situational depression with anxiety, obstructive sleep apnea and history of kidney stones who presented to the emergency room with complaint of chest pressor just to the left-sided midsternal region radiating to the neck, shoulders and upper back. 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 She reports she has had significant stress recently with 2 deaths within the family as well as her significant other currently hospitalized. She notes she was speaking with another co-worker about stressors when she noted the chest pressure. She then had radiation to the neck with tingling in the left and then right arm. She also had associated shortness of breath with nausea and feelings of anxiety. Patient did check her blood pressure which was reported to be 220/118. With continuing symptoms, she presented to the emergency room for further evaluation and treatment. Initial troponin levels were negative but given her history, it was felt prudent to place patient in observation for further evaluation and treatment as well as cardiology consultation. Course in Hospital: Patient was admitted to the IMU where she remained for the duration of her stay. Serial troponin levels were completed all negative. EKG with no acute changes. Telemetry was monitored also with no acute changes seen. She was seen in consultation by Cardiology with Lexiscan stress test ordered. Lexiscan stress test was completed on 07/02/2019 and negative for ischemia. Chest pain was felt to be related to her anxiety as she continued to have less intense episodes during her hospital stay and always at times of discussing stressors. Patient was continued on her home citalopram with short-acting Xanax also provided as needed which did provide some relief. Patient was noted to have mild elevation of her blood pressure with low-dose carvedilol started. Blood pressure was improved. Patient did have a lipid panel performed with triglycerides 124, total cholesterol 166, LDL 100 and HDL 37. Patient was continue lifestyle modifications with no statin initiated with known previous intolerance to pravastatin. Incidentally on evaluation in the emergency room patient was noted to have on CTA chest a 7.5 x 3.0 x 2.3 cm mass extending along the posterior pleura of the right lower lobe unclear whether pleural or more likely subpleural arising from the intercostal tissues concerning for neoplasm which could be either benign or malignant with location in pattern of growth suggesting possible schwannoma or neurofibroma. Pulmonology was consulted and did evaluate the patient. Histoplasmosis antibody and antigen were ordered with results pending at time of discharge. A CT-guided biopsy of the mass was plan for prior to discha
== END 2019-07-03 16:00 | disposition home or self-care (01) ==
LOC: ANHED 14:22 → ANHIMU 20:58
PROVIDERS: Internal Medicine Critical Care Medicine; Physician Assistant; Admitting Provider Internal Medicine; Emergency Provider Emergency Medicine; PCP Family Medicine; Visit Provider Hospitalist
DX: R07.9 Chest pain, unspecified (principal); R91.8 Other nonspecific abnormal finding of lung field; R03.0 Elevated blood-pressure reading, without diagnosis of hypertension; F41.8 Other specified anxiety disorders; E78.5 Hyperlipidemia, unspecified; G47.33 Obstructive sleep apnea (adult) (pediatric); M19.90 Unspecified osteoarthritis, unspecified site; Z79.82 Long term (current) use of aspirin; Z79.899 Other long term (current) drug therapy; Z86.010 Personal history of colon polyps
CPT/HCPCS: 32405; 36415; 71045; 71046; 71275; 77012; 78452; 80048; 80053; 80061; 84484; 85025; 85610; 85730; 86698; 87385; 88305; 88342; 93005; 93017; 93306; 96361; 96374; 96375; 96376; 99285; A9270; A9502; G0378; J2270; J2405; J2785; J7030; Q9967

== ENCOUNTER 2021-03-23 11:40 | Observation (INO) | payer OTHER, SELFPAY ==
[2021-03-23] VITALS (8 sets, daily range): BP systolic 106–167; BP diastolic 76–87; PULSE 71–113; RESP 14–22; TEMP 36.8–36.9; O2SAT 95–99; BMI 32.2
--- NOTE | ~2021-03-23 | XR_ITS ---
EXAMINATION: XR chest 1V portable DATE: 03/23/2021 12:07 INDICATION: Dizziness. Jaw pain. TECHNIQUE: frontal view of the chest was obtained. COMPARISON: Chest radiograph dated 07/03/2019 FINDINGS: The lungs are now clear with no focal airspace opacities, pulmonary edema, pleural effusion or pneumo thorax. The cardiomediastinal silhouette is normal. Visualized bones and soft tissues are unremarkabl e. IMPRESSION: 1. No acute cardiopulmonary disease. Reviewed, dictated and finalized at location A. TIONAL MENTAL DISABILITY TEACHER
--- NOTE | ~2021-03-23 | CT_ITS ---
EXAMINATION: CTA chest PE protocol DATE: 03/24/2021 12:47 INDICATION: Chest pain TECHNIQUE: Computed tomography angiography (CTA) of the chest was performed with 100 mL Omnipaque-350 intravenous contrast timed to evaluate the pulmonary arteries. Coronal maximum intensity projection 3D-reconstructions were created by the technologist. Automated exposure control and iterative reconst ruction technique were employed. Exam dose: 280.71 mGy-cm total exam DLP. COMPARISON: March 23, 2021 portable AP chest 07/03/2019 CT pleural biopsy 07/01/2019 CT pulmonary scan FINDINGS: There is diagnostic contrast enhancement of the pulmonary arteries and no evidence of pulmo nary embolism. No thoracic aortic aneurysm. Normal heart size. There is coronary artery calcification. There is trace pericardial fluid. No pleural effusion. There is interval resection of a portion of the posterior right sixth rib and the previously reported posterior right pleural mass which was biopsied on 07/03/2019. There is a long suture line running al eh the lateral course of the right greater fissure. No pulmonary infiltrate or consolidation or pulmonary mass lesion is detected. No hilar or mediastinal mass lesion or lymphadenopathy. Bilateral breast implants. Status post cholecystectomy. Hepatic steatosis. Included portions of the adrenal glands are unremarkable. No suspicious osteolytic or osteoblastic lesions. There is degenerative spurring of the thoracic spin e. IMPRESSION: No evidence of pulmonary embolism Status post partial right sixth rib and large right posterior pleural mass resection since 07/03/2019 Reviewed, dictated and finalized at Location A. Reviewed, dictated and finalized at location A. [employer]ISOR TWISTING DEPARTMENT IMPRESSION: No evidence of pulmonary embolism Status post partial right sixth rib and large right posterior pleural mass rese ction since 07/03/2019
--- NOTE | ~2021-03-23 | NM_ITS ---
EXAMINATION: NM stress w perf spect multi DATE: 03/24/2021 17:18 INDICATION: Recurrent and persistent chest pain. TECHNIQUE: Rest images were obtained following intravenous administration of 9.8 mCi Tc99m tetrofosmi n (Snootlabview). The patient performed an exercise activity. At peak exercise, 30.2 mCi Tc99m tetrofosmin (Myoview) was administered intravenously, and stress images were obtained. Data was reconstructed in to short axis and horizontal and vertical long axis SPECT images. Gated SPECT images were also obtain ed. COMPARISON: Myocardial perfusion imaging 07/02/2019, chest CT 03/24/2021 FINDINGS: There is no definite reversible or fixed perfusion abnormality to suggest ischemia or infar ction. There is no segmental wall motion abnormality. Left ventricular ejection fraction measures > 70%. IMPRESSION: 1. No definite ischemia or infarct. 2. Normal left ventricular ejection fraction measuring >70%. Reviewed, dictated and finalized at location E. A AND P MECHANIC
--- NOTE | 2021-03-23 11:50 | ECG_ITS ---
Measurements Intervals [place] Rate: 103 P: 34 DC: 162 QRS: 21 QRSD: 97 T: 30 QT: 286 QTc: 375 Interpretive Statements SINUS TACHYCARDIA MINIMAL Q WAVES- INFERIOR LEADS BORDERLINE ST-T WAVE ABNORMALITY- INF/LAT LEADS BASELINE ARTIFACT- I, II, AVR, AVL NORMAL ECG Electronically Signed On 03-23-2021 14:47:58 AT HOME INDEPENDENT CALL CENTER AGENT by Rufus Adams D.O.
--- NOTE | 2021-03-23 12:50 | ED.CHESTPAIN ---
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 Patient does not take medicine for high blood pressure, patient checked her blood pressure at that time and was 190/99, had clonidine prior to arrival to the emergency room. Then started feeling pressure type pain at the left side of the chest radiating to the jaw and left the scapula. The above symptoms are improving except the chest pressure and not feeling well. Patient received nitroglycerin in the ambulance prior to arrival to the emergency room. Patient reported history of obstructive sleep apnea, hyperlipidemia, benign lung mass and anxiety with depression patient had Covid infection February 18, 2019 with intermittent cough. Patient sister who is younger had frequent CVA, patient's mother of a heart attack 4 years ago. Related Data Home Medications Medication Instructions Recorded Confirmed Zyrtec 10 mg PO HS 07/01/19 07/01/19 aspirin [Adult Low Dose Aspirin] 81 mg PO HS 07/01/19 07/01/19 cholecalciferol (vitamin D3) 125 mcg PO HS 07/01/19 07/01/19 [Vitamin D3] citalopram 20 mg PO HS 07/01/19 07/01/19 fluticasone propionate 1 spray INTRANASAL BID 07/01/19 07/01/19 montelukast 10 mg PO HS 07/01/19 07/01/19 Allergies Allergy/AdvReac Type Severity Reaction Status Date / Time cephalexin Allergy Severe Hives / Verified 07/01/19 16:49 Red Face Review of Systems Review of Systems: CONSTITUTIONAL: Denies fever, chills, or sweats. EYES: Denies visual changes, redness, or discharge. ENT: Denies rhinorrhea, congestion, sore throat, or otalgia. CARDIOVASCULAR: Denies chest pain, palpitations, or edema. RESPIRATORY: Denies cough or dyspnea. GASTROINTESTINAL: Denies abdominal pain, nausea, vomiting, or diarrhea. GENITOURINARY: Denies dysuria or hematuria. SKIN: Denies rash or itching. MUSCULOSKELETAL: Denies back pain, joint pain, or myalgia. NEUROLOGIC: Denies headache, numbness, or weakness. PSYCHIATRIC: Denies anxiety or depression. [facility] Past Medical History Medical History (Updated 03/23/21 @ 13:40 by Toribio Chatman MD) Colon polyps Depression with anxiety Dyslipidemia Eczema Kidney stones Obstructive sleep apnea She does not use a CPAP. Osteoarthritis Seasonal allergies Surgical History Surgical History History of 3 sections History of Achilles tendon repair Right. History of breast implant History of cholecystectomy History of tonsillectomy and uvula removed 10 years ago due to large tonsils and small airway Family History Family History Father Acute myocardial infarction Hypertension Sibling Asthma History of blood clots Cerebrovascular accident Vascular dementia Hypertension Atrial fibrillation Diabetes mellitus Mother Hypertension Diabetes mellitus Social History Social History Social History: The patient lives in [place] with her significant other. She is originally from [place]. She has 3 grown children. 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 She drinks alcohol socially and in moderation. No illicit drug use. She designates her daughter, Stacie Parrish, as her surrogate decision maker and she wishes to be a full code. Course Vital Signs Vital signs: Vital Signs Temperature 36.9 C 03/23/21 11:40 Pulse Rate 113 H 03/23/21 11:40 Respiratory Rate 22 H 03/23/21 11:40 Bl
[2021-03-23 13:12] LABS: Basophils Absolute Auto 0.1 K/mm3 (0.0-0.1); Basophils Percent Auto 1.1 % (0.2-1.2); Eosinophils Absolute Auto 0.1 K/mm3 (0-0.3); Eosinophils Percent Auto 0.7 % (0-4.4); Hematocrit 41.2 % (37.0-47.0); Hemoglobin 13.6 g/dL (12.0-15.0); Immature Granulocyte Absolute 0.14 K/mm3 (0.00-0.031); Immature Granulocyte Percent A 1.8 % (0-0.5); Lymphocytes Absolute Auto 1.39 K/mm3 (0.9-3.2); Lymphocytes Percent Auto 18.3 % (18.3-44.2); Mean Corpuscular Hemoglobin 30.4 pg (26-34); Mean Corpuscular Volume 92.2 fl (80-100); Mean Platelet Volume 9.6 fl (7.4-10.4); Monocytes Absolute Auto 0.4 K/mm3 (0.1-0.6); Monocytes Percent Auto 5.4 % (2.6-8.5); Neutrophils Absolute Auto 5.5 K/mm3 (1.3-6.7); Neutrophils Percent Auto 72.7 % (45.5-73.1); Platelet Count Result 263 k/mm3 (150-375); Red Blood Count 4.47 M/mm3 (4.2-5.4); Red Cell Distribution Width 14.1 % (11.5-14.5); White Blood Count 7.6 K/mm3 (4.5-10.0)
[2021-03-23 13:23] LABS: Alanine Aminotransferase 37 U/L (4-35); Albumin Level 4.3 g/dL (3.5-5.1); Alkaline Phosphatase 79 U/L (38-126); Anion Gap 7 mmol/L (8-16); Aspartate Amino Transferase 28 U/L (14-36); Bilirubin,Total 0.3 mg/dL (0.2-1.3); Blood Urea Nitrogen 13 mg/dL (7-17); Carbon Dioxide 24 mmol/L (22-30); Chloride 105 mmol/L (98-107); Estimated Glomerular Filt Rate > 60; Glucose 99 mg/dL (65-110); INR 0.9; Lipase 292 U/L (23-300); Partial Thromboplastin Time 23.2 SECONDS (22.3-36.8); Potassium 3.7 mmol/L (3.4-5.0); Prothrombin Time 12.4 Seconds (11.1-14.7); Sodium 136 mmol/L (137-145)
[2021-03-23 13:34] LABS: Troponin I < 0.012 ng/mL (0.000-0.034)
--- NOTE | 2021-03-23 14:00 | PM.IMHP ---
H&P: HPI History of Present Illness Date/Time: 03/23/21 14:00 Chief Complaint: Chest pain. Narrative: This is a pleasant 65-year-old female with history of kidney stones, hyperlipidemia, obstructive sleep apnea, and anxiety who presented to the emergency department earlier today for evaluation of chest pain. 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 She began feeling extremely hot and was feeling lightheaded and dizziness as though she may pass out. She stepped out of the office to get some fresh air at which time she developed midsternal chest pressure radiating to the jaw and through to the left scapula associated with shortness of breath. The nurse in her office checked her blood pressure at which time it was reportedly in the 190s over 99. At that time she took 0.2 mg of clonidine x1, 4 baby aspirin, and a nitroglycerin. Her chest discomfort was still there and 911 was summoned. On arrival she received another dose of nitroglycerin which seems to have helped somewhat. She still has some minor soreness in the area. She had an episode of chest pain in June 2019 and chest pain at that time was attributed to a combination of anxiety and high blood pressure. She denies nausea, vomiting, and diaphoresis. She did recently travel via air to [place] though her history does not suggest pulmonary embolism and she denies pleuritic pain, lower extremity edema, and calf tenderness. Review of Systems Review of Systems: Twelve systems were reviewed with pertinent positives and negatives as per HPI. No fever, chills, or sweats. no cold or flu symptoms. She had COVID in mid February and still has perhaps some mild lingering cough. Except as documented, all other systems were reviewed and are negative. [facility] Past Medical History Medical History (Updated 03/23/21 @ 20:59 by Shanta Delvalle PA-C) Colon polyps COVID-19 (02/2021) Depression with anxiety Dyslipidemia Eczema History of benign schwannoma Kidney stones Obstructive sleep apnea She does not use a CPAP. Osteoarthritis Seasonal allergies Surgical History Surgical History (Updated 03/23/21 @ 20:57 by Shanta Delvalle PA-C) History of 3 sections History of Achilles tendon repair Right. History of breast implant History of cholecystectomy History of thoracotomy Resection of benign pleural schwannoma. History of tonsillectomy and uvula removed 10 years ago due to large tonsils and small airway Family History Family History Father Acute myocardial infarction Hypertension Sibling Asthma History of blood clots Cerebrovascular accident Vascular dementia Hypertension Atrial fibrillation Diabetes mellitus Mother Hypertension Diabetes mellitus Social History Social History (Updated 03/23/21 @ 20:58 by Shanta Delvalle PA-C) Social History: The patient lives in [place] with her significant other. She is originally from [place]. She has 3 grown children. 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 She drinks alcohol socially and in moderation. No illicit drug use. She designates Kitty Cooley (sibling) as her surrogate decision maker and she wishes to be a full code. Meds Home Medications and Allergies Home Medications Medication Instructions Recorded Confirmed Type Zyrtec 10 mg PO DAILY 07/01/19 03/23/21 History aspirin [Adult Low Dose Aspirin] 81 mg PO HS 07/01/19 03/23/21 History cholecalciferol (vitamin D3) 125 mcg PO HS 07/01/19 03/23/21 History [Vitamin D3] citalopram 40 mg PO DAILY 07/01/19 03/23/21 History fluticasone propionate 1 spray INTRANASAL BID PRN 07/01/19 03/23/21 History montelukast 10 mg PO DAILY 07/01/19 03/23/21 History alprazolam 0.5 mg PO TID PRN
[2021-03-23] MEDS: LORazepam INJ (*CRX) 2 MG/ML VIAL 1 MG IV PUSH (14:09)
[2021-03-23] MEDS: METOPROLOL TARTRATE 50 MG TAB 25 MG PO (14:44)
--- NOTE | 2021-03-23 15:10 | ECG_ITS ---
Measurements Intervals [place] Rate: 103 P: 34 [place]: 162 QRS: 21 QRSD: 97 T: 30 QT: 286 QTc: 375 Interpretive Statements SINUS TACHYCARDIA MINIMAL Q WAVES- INFERIOR LEADS NONSPECIFIC ST & T-WAVE ABNORMALITY- DIFFUSE LEADS BASELINE ARTIFACT- I, II, AVR BORDERLINE ECG Electronically Signed On 03-24-2021 14:15:12 GOGGLES ASSEMBLER by Rufus Adams D.O.
[2021-03-23 16:00] LABS: Troponin I < 0.012 ng/mL (0.000-0.034)
--- NOTE | 2021-03-23 17:12 | ADMIMU ---
This patient, Francheska Cooley, was admitted to IMU status, and placed in [facility]. Patient/family oriented to hospital policies and general routines including ID bracelet, bed and alarms, visiting hours, pain management, procedures, bathroom and other care routines, personal items, smoking policy, room service/diet, and visiting hours. Valuables list has been completed. Information on how to activate the Rapid Response Team has been discussed. Patient/Family are encouraged to report perceived risks to care and to ask questions if they do not understand what they are told or what they should do.
[2021-03-23 18:47] LABS: Troponin I < 0.012 ng/mL (0.000-0.034)
[2021-03-23 18:56] LABS: D Dimer 0.27 ug/mL (<0.48)
[2021-03-23] MEDS: CHOLECALCIFEROL 1,000 UNITS TABLET 5000 UNITS PO (21:29)
[2021-03-23] MEDS: ALPRAZolam (*CRX) 0.5 MG TABLET PO (21:53)
[2021-03-23] MEDS: FAMOTIDINE 20 MG TABLET PO (23:08)
[2021-03-24] VITALS (14 sets, daily range): BP systolic 110–133; BP diastolic 73–92; PULSE 61–96; RESP 13–21; TEMP 36.6–36.7; O2SAT 94–97
--- NOTE | 2021-03-24 | EST_ITS ---
Patient Info Name: Francheska Cooley Age: 65 years : 1955 Gender: Female Ht: 58 in Wt: 152 lbs BSA: 1.71 m2 HR: 74 bpm BP: 122 / 82 mmHg Heart Rhythm: Sinus Rhythm Exam Date: 03/24/2021 4:08 PM Exam Location: [facility] Stress Patient Status: Outpatient Admit Date: 03/23/2021 Staff Ordering Physician: Alysha Myers NP Attending Provider: Alysha Myers NP Exercise Technologist: An Mason CT Nurse: ANALISA ROJO Exam Type: CA stress test treadmill w NM Study Info Indications R07.9 - Chest pain, unspecified A nuclear stress test was performed. Summary 1. Please correlate with nuclear medicine images, reported separately. 2. No abnormal ST-T wave changes with exercise. 3. Artifactual blood pressure readings in stage 2 and 3. Manual blood pressure readings normal. Protocol: [facility] Stress ECG Details Stage: REST Duration (min): 1 min : 4 sec Speed (mph): 0.0 Grade (%): 0 HR (bpm): 73 SBP (mmHg): 122 DBP (mmHg): 82 METS: --- Stage: REST Duration (min): 5 min : 54 sec Speed (mph): 0.0 Grade (%): 0 HR (bpm): 91 SBP (mmHg): 122 DBP (mmHg): 82 METS: --- Stage: STAGE 1 Duration (min): 1 min : 0 sec Speed (mph): 1.7 Grade (%): 10 HR (bpm): 100 SBP (mmHg): 122 DBP (mmHg): 82 METS: --- Stage: STAGE 1 Duration (min): 2 min : 0 sec Speed (mph): 1.7 Grade (%): 10 HR (bpm): 101 SBP (mmHg): 122 DBP (mmHg): 82 METS: --- Stage: STAGE 1 Duration (min): 3 min : 0 sec Speed (mph): 1.7 Grade (%): 10 HR (bpm): 105 SBP (mmHg): 142 DBP (mmHg): 71 METS: --- Stage: STAGE 2 Duration (min): 1 min : 0 sec Speed (mph): 2.5 Grade (%): 12 HR (bpm): 116 SBP (mmHg): 142 DBP (mmHg): 71 METS: --- Stage: STAGE 2 Duration (min): 2 min : 0 sec Speed (mph): 2.5 Grade (%): 12 HR (bpm): 124 SBP (mmHg): 125 DBP (mmHg): 73 METS: --- Stage: STAGE 2 Duration (min): 3 min : 0 sec Speed (mph): 2.5 Grade (%): 12 HR (bpm): 127 SBP (mmHg): 125 DBP (mmHg): 73 METS: --- Stage: STAGE 3 Duration (min): 1 min : 0 sec Speed (mph): 3.4 Grade (%): 14 HR (bpm): 135 SBP (mmHg): 125 DBP (mmHg): 73 METS: --- Stage: STAGE 3 Duration (min): 1 min : 30 sec Speed (mph): 3.4 Grade (%): 14 HR (bpm): 139 SBP (mmHg): 125 DBP (mmHg): 73 METS: --- Stage: RECOVERY Duration (min): 0 min : 29 sec Speed (mph): 0.0 Grade (%): 0 HR (bpm): 136 SBP (mmHg): 125 DBP (mmHg): 73 METS: --- Stage: RECOVERY Duration (min): 1 min : 29 sec Speed (mph): 0.0 Grade (%): 0 HR (bpm): 102 SBP (mmHg): 125 DBP (mmHg): 73 METS: --- Stage: RECOVERY Duration (min): 2 min : 29 sec Speed (mph): 0.0 Grade (%): 0 HR (bpm): 118 SBP (mmHg):
--- NOTE | 2021-03-24 06:00 | ECG_ITS ---
Measurements Intervals [place] Rate: 71 P: 23 [place]: 170 QRS: -6 QRSD: 102 T: 1 QT: 388 QTc: 422 Interpretive Statements SINUS RHYTHM CONSIDER INFERIOR INFARCT, AGE INDETERMINATE ABNORMAL ECG Electronically Signed On 03-24-2021 13:18:06 REFINISHER by Rufus Adams D.O.
[2021-03-24 06:18] LABS: Anion Gap 6 mmol/L (8-16); Blood Urea Nitrogen 10 mg/dL (7-17); Calcium 8.7 mg/dL (8.4-10.2); Carbon Dioxide 25 mmol/L (22-30); Chloride 104 mmol/L (98-107); Cholesterol 232 mg/dL (0-200); Estimated Glomerular Filt Rate > 60; Glucose 90 mg/dL (65-110); HDL Direct 50 mg/dL; Magnesium 1.8 mg/dL (1.6-2.3); Potassium 3.8 mmol/L (3.4-5.0); Sodium 135 mmol/L (137-145); Triglycerides 155 mg/dL (<150)
[2021-03-24 06:28] LABS: LDL Cholesterol Direct 131 mg/dL
[2021-03-24] MEDS: ONDANSETRON INJ 4 MG/2 ML VIAL IV PUSH (07:42)
[2021-03-24] MEDS: CITALOPRAM HYDROBROMIDE 20 MG TABLET 40 MG PO (08:37)
[2021-03-24] MEDS: ASPIRIN 81 MG CHEWABLE TABLET PO (08:37)
[2021-03-24] MEDS: LORATADINE 10 MG TABLET PO (08:37)
[2021-03-24] MEDS: MONTELUKAST SODIUM 10 MG TABLET PO (08:37)
[2021-03-24] MEDS: ACETAMINOPHEN 500 MG TABLET 1000 MG PO (08:38)
--- NOTE | 2021-03-24 12:01 | PM.IMPN ---
Progress Note: A&P Assessment and Plan (1) Chest pain: Qualifiers: Chest pain type: unspecified Qualified Code(s): R07.9 - Chest pain, unspecified Code(s): R07.9 - Chest pain, unspecified Status: Acute Assessment and Plan: Differential diagnoses include: costochondritis, CAD, adhesions from post thoracotomy surgeries or lung mass biopsy, symptom from post COVID syndrome cough. Somewhat atypical for cardiac pain although she does have risk factors. no increased pain with palpation or gentle pressure to the skin over the chest or sternum. no difficulty taking deep breaths in, and she does not have increased pain with deep breathing. diagnosed with COVID pneumonia last month and she has been coughing quite often since then per patient report to nurse. but she did not have any cough during my 2 visits with her today or during my exam today. negative stress test in June 2019. Pulmonary embolism considered given recent overseas travel - ordered CTA chest admitted and monitored on telemetry overnight. Troponins x3 normal, D-dimer normal, Lipase normal Consulted structural iron erector and we agreed on her having a stress test; also getting a CTA due to her past lung mass and surgery. history of a 7.5 x 3.0 x 2.3 cm schwannoma mass extending along the posterior pleura of the right lower lobe that was found in 2019 and has been subsequently removed via right thoracotomy. She is to return for her post thoracotomy/schwannoma follow-up this May with a CT scan. Her echo at that time in 2019 was without concern. (2) Elevated blood pressure reading: Code(s): R03.0 - Elevated blood-pressure reading, without diagnosis of hypertension Status: Acute Assessment and Plan: She reports that her blood pressure was in the 190s over 90s today and she took 0.2 mg of clonidine at her clinic. Blood pressures have been stable since that time. Avoiding nitro at this time due to her persistent headache Her vital signs are well controlled with systolics in the 120s and heart rates in the 60s. (3) Dyslipidemia: Code(s): E78.5 - Hyperlipidemia, unspecified Status: Acute Assessment and Plan: Not currently on medication. Checked fasting lipids Lipid panel with mildly elevated triglycerides at 155 and total cholesterol elevated at 232. She stated she spoke to her primary care regarding elevated cholesterol labs before, and they agreed to continue to work on diet and exercise. stated that she may benefit from a low-dose statin, she said she tried that before but had side effects such as muscle aches and weakness, and that she stopped the statin. (4) Depression with anxiety: Code(s): F41.8 - Other specified anxiety disorders Status: Acute Assessment and Plan: Continue alprazolam and citalopram. She was not stressed or panicked at the time of her episode of chest pain She is calm and pleasant and has a euthymic mood today (5) Schwannoma: Code(s): D36.10 - Benign neoplasm of peripheral nerves and autonomic nervous system, unspecified Status: Acute Assessment and Plan: with schwannoma hx, differential diagnosis: could be a recurrent tumor or adhesions related to past surgery getting a CTA due to her past lung mass and surgery. history of a 7.5 x 3.0 x 2.3 cm schwannoma mass extending along the posterior pleura of the right lower lobe that was found in 2019 subsequently removed via right thoracotomy. she is due to return for her post thoracotomy/schwannoma follow-up this May with a CT scan. Subjective Date/time seen: 03/24/21 12:01 Francheska was admitted yesterday after an episode at her work. She was not stressed or panicked at the time. She does take citalopram and alprazolam. She was diaphoretic at the time, lightheaded and dizzy, near syncope, had mid sternal chest pressure which radiated to the jaw and left scapula and gave her shortness
[2021-03-24] MEDS: ENOXAPARIN 40 MG/0.4 ML SYRINGE SUB-Q (13:16)
[2021-03-24] MEDS: PANTOPRAZOLE 40 MG TABLET PO (13:17)
--- NOTE | 2021-03-24 15:42 | PM.CNCAR ---
Assessment and Plan Assessment and plan (1) Chest pain: Qualifiers: Chest pain type: unspecified Qualified Code(s): R07.9 - Chest pain, unspecified Code(s): R07.9 - Chest pain, unspecified Status: Acute Assessment and Plan: Atypical. GI versus cardiac versus other. She has had a negative cardiac workup in the past including stress test. She also had a normal cardiac catheterization 2003. Stress test 2016 was also negative. Will give her a GI cocktail to see if her symptoms improved since she is still having them. Stress test is already ordered and currently being performed. Will the follow up on its results. If she continues to have symptoms despite negative stress test, could pursue coronary artery CT scan or even a coronary angiogram to definitively assess her anatomy. (2) Elevated blood pressure reading: Code(s): R03.0 - Elevated blood-pressure reading, without diagnosis of hypertension Status: Acute Assessment and Plan: Markedly elevated blood pressure at time of symptoms (3) Obstructive sleep apnea: Code(s): G47.33 - Obstructive sleep apnea (adult) (pediatric) Status: Acute Assessment and Plan: Continue CPAP (4) Dyslipidemia: Code(s): E78.5 - Hyperlipidemia, unspecified Status: Acute (5) Dizziness: Code(s): R42 - Dizziness and giddiness Status: Acute Assessment and Plan: Her episode of dizziness and sweatiness and feeling hot sounds like a vasovagal reaction. History of Present Illness History of Present Illness Consult date/time: 03/24/21 15:42 Requesting physician: Alysha Myers, [employer] TECHNICIAN Consult reason: chest pain Reason For Visit: Chest Pain, Anxiety-like Symptoms Narrative: Date of service 03/24/2021: Reason consultation: Chest pain Requesting provider: Alysha Myers History: Patient is a 65-year-old female who I saw a couple of years ago because of chest pain. Workup at that time was negative although she did have markedly elevated blood pressure at presentation. She came to the hospital yesterday because of recurrent chest pain. Patient states that she suddenly felt dizzy hot and felt as if she could get enough air. She went outside to get some air. Episode lasted for 45 minutes. She felt like she could pass out but did not. She then had some left-sided chest pain which radiated to left side of her neck and into her back. She describes as a pressure sensation. Later than she had some ?paresthesias ?involving her lower extremities and arms. She took her blood pressure at her clinic and was noted to be markedly elevated. She took a clonidine as well as nitroglycerin. She thinks she may have gotten a little bit of benefit from 2 nitroglycerin tablets. She came to hospital for further workup evaluation. She continues to have a slight amount of chest pain even now which is multiple hours later. Chest pain is not positional. CT scan of chest was negative. Troponins are negative. EKG is unremarkable. She does have a history of COVID within the past month or so. Review of Systems Review of Systems: All systems reviewed & are unremarkable except as noted in HPI and below Constitutional: Constitutional: Denies weakness Eyes: Eyes: Denies blurry vision ENT: Reports Normal hearing present Cardiovascular: Cardiovascular: Reports chest pain Respiratory: Respiratory: Denies dyspnea Gastrointestinal: Gastrointestinal: Denies abdominal pain Genitourinary: Genitourinary: Denies flank pain Musculoskeletal: Musculoskeletal: Denies neck pain Integumentary/Breasts: Skin/Breast: Denies dry skin Neurologic: Denies headache(s) Psychiatric: Psychiatric: Reports anxiety Endocrine: Endocrine: Denies excessive sweating Hematologic/Lymphatic: Hematologic/Lymphatic: Denies easy bleeding Allergic/Immunologic: Allergic/Immunologic: Denies GI upset with certain foods PMFSH Past Medical History Medical Histo
--- NOTE | 2021-03-24 15:51 | PC.NURSE ---
1515-pt went down for stress test via wheelchair and quality assurance monitor
--- NOTE | 2021-03-24 17:46 | PM.DS ---
DS: Admitting Diagnosis Discharge Date 03/24/2021 Admitting Diagnosis chest pain, elevated blood pressure, dyslipidemia, depression with anxiety, schwannoma DS: Discharge Diagnosis Discharge Diagnosis (1) Chest pain: Qualifiers: Chest pain type: unspecified Qualified Code(s): R07.9 - Chest pain, unspecified Code(s): R07.9 - Chest pain, unspecified Status: Acute Assessment and Plan: RESOLVED NOW. Differential diagnoses include: costochondritis, CAD, adhesions from post thoracotomy surgeries or lung mass biopsy, symptom from post COVID syndrome cough. Somewhat atypical for cardiac pain although she does have risk factors. no increased pain with palpation or gentle pressure to the skin over the chest or sternum. no difficulty taking deep breaths in, and she does not have increased pain with deep breathing. diagnosed with COVID pneumonia last month and she has been coughing quite often since then per patient report to nurse. but she did not have any cough during my 2 visits with her today or during my exam today. negative stress test in June 2019. Pulmonary embolism considered given recent overseas travel - ordered CTA chest admitted and monitored on telemetry overnight. Troponins x3 normal, D-dimer normal, Lipase normal Consulted assistant track and field coach and we agreed on her having a stress test; also getting a CTA due to her past lung mass and surgery. history of a 7.5 x 3.0 x 2.3 cm schwannoma mass extending along the posterior pleura of the right lower lobe that was found in 2019 and has been subsequently removed via right thoracotomy. She is to return for her post thoracotomy/schwannoma follow-up this May with a CT scan. Her echo at that time in 2019 was without concern. TODAY's Exercise Stress Test: normal and without acute concerns No abnormal ST-T wave changes with exercise.Artifactual blood pressure readings in stage 2 and 3. Manual blood pressure readings normal. FINDINGS: There is no definite reversible or fixed perfusion abnormality to suggest ischemia or infarction. There is no segmental wall motion abnormality. Left ventricular ejection fraction measures >70%. IMPRESSION:1. No definite ischemia or infarct.2. Normal left ventricular ejection fraction measuring >70%. TODAY's CTA: without acute concerns FINDINGS: There is diagnostic contrast enhancement of the pulmonary arteries and no evidence of pulmonary embolism. No thoracic aortic aneurysm. Normal heart size. There is coronary artery calcification. There is trace pericardial fluid. No pleural effusion. There is interval resection of a portion of the posterior right sixth rib and the previously reported posterior right pleural mass which was biopsied on 07/03/2019. There is a long suture line running along the lateral course of the right greater fissure. No pulmonary infiltrate or consolidation or pulmonary mass lesion is detected. No hilar or mediastinal mass lesion or lymphadenopathy. Bilateral breast implants. Status post cholecystectomy. Hepatic steatosis. Included portions of the adrenal glands are unremarkable. No suspicious osteolytic or osteoblastic lesions. There is degenerative spurring of the thoracic spine. IMPRESSION: No evidence of pulmonary embolism Status post partial right sixth rib and large right posterior pleural mass resection since 07/03/2019 Per nursing staff - patient stated upon return from exercise stress test, that the walking helped her, and she denies any chest discomfort or pain or burning at this time. Nursing staff will get her dinner and see how she feels with eating. If pain does not return, she will not need the GI cocktail and she can be discharged. Will discharge her with a prescription for Protonix. (2) Elevated blood pressure reading: Code(s): R03.0 - Elevated blood-pressure reading, without diagnosis of hypertension Status: Acute Assessment and Plan: She reports that her blood pressure was in th
--- NOTE | 2021-03-24 18:21 | PC.NURSE ---
1750-pt back to room 5 from stress test. pt doing well, VSS
--- NOTE | 2021-03-24 18:58 | PC.NURSE ---
1845-discharge instructions given and explained to the pt. IV dc'd and pt dressed.
--- NOTE | 2021-03-24 19:13 | PC.NURSE ---
1911-pt discharged via wheelchair. at front of the hospital to sampler pickup pt.
== END 2021-03-24 19:12 | disposition home or self-care (01) ==
LOC: ANHED 16:58 → ANHCPC 17:11
PROVIDERS: Physician Assistant; Admitting Provider Hospitalist; Emergency Provider Emergency Medicine; PCP Family Medicine; Visit Provider Family Medicine
DX: R07.9 Chest pain, unspecified (principal); R03.0 Elevated blood-pressure reading, without diagnosis of hypertension; R42 Dizziness and giddiness; E78.5 Hyperlipidemia, unspecified; G47.33 Obstructive sleep apnea (adult) (pediatric); F41.8 Other specified anxiety disorders; Z79.82 Long term (current) use of aspirin; Z86.018 Personal history of other benign neoplasm
CPT/HCPCS: 36415; 71045; 71275; 78452; 80048; 80053; 80061; 83690; 83735; 84484; 85025; 85380; 85610; 85730; 93005; 93017; 96372; 96374; 99285; A9270; A9502; G0378; J1650; J2060; J2405; Q9967

== ENCOUNTER 2023-01-26 00:56 | Day surgery (SDC) | payer OTHER, SELFPAY ==
[2023-01-22 08:59] VITALS: BMI 32.2
--- NOTE | 2023-01-24 12:24 | SUR.PREOP ---
Patient called regarding upcoming procedure. Message left on pt's voicemail regarding appointment times.
[2023-01-26 13:10] VITALS: BP 141/81; PULSE 66; RESP 18; TEMP 36.5; O2SAT 98; BMI 33.3
[2023-01-26] MEDS: LACTATED RINGERS 1,000 ML 150 ML IV CONT (13:30)
--- NOTE | 2023-01-26 13:34 | WPDANESEPPF ---
Anes - Initial Pre Proc Eval Procedure: Operation Date: 01/26/23 13:30 Proposed Procedures p Colonoscopy - Alok Escoto MD Date/Time: 01/26/23 13:34 Surgeon: Alok Escoto MD Pre Op Diagnosis: Hx colon polyps Patient Data Age: 67 Gender: F Height: 1.47 m Weight: 72.4 kg Last Vital Signs Temp 36.5 C 01/26/23 13:10 Pulse 66 01/26/23 13:10 Resp 18 01/26/23 13:10 BP 141/81 H 01/26/23 13:10 Pulse Ox 98 01/26/23 13:10 O2 Del Method Room Air 01/26/23 13:10 Allergies Allergy/AdvReac Type Severity Reaction Status Date / Time cephalexin Allergy Severe Hives / Verified 01/26/23 13:20 Red Face Home Medications Medication Instructions Recorded Confirmed Type aspirin 81 mg tablet,delayed 81 mg PO HS 07/01/19 01/26/23 History release (Adult Low Dose Aspirin) cetirizine 10 mg capsule (Zyrtec) 10 mg PO DAILY 07/01/19 01/26/23 History cholecalciferol (vitamin D3) 125 125 mcg PO HS 07/01/19 01/26/23 History mcg (5,000 unit) tablet (Vitamin D3) fluticasone propionate 50 1 spray intranasal BID PRN 07/01/19 01/26/23 History mcg/actuation nasal Allergic Symptoms spray,suspension montelukast 10 mg tablet 10 mg PO DAILY 07/01/19 01/26/23 History alprazolam 0.25 mg tablet 0.5 mg PO TID PRN Anxiety 03/23/21 01/26/23 History pantoprazole 40 mg tablet,delayed 40 mg PO QAM 30 days #30 tabs 03/24/21 01/26/23 Rx release Patient hx anesthesia problems: none Family hx anesthesia problems: none Results Review: All pre-operative results and documents have been reviewed as part of the pre-operative evaluation. [facility] Past Medical History Medical History Colon polyps COVID-19 (02/2021) Depression with anxiety Dyslipidemia Eczema History of benign schwannoma Kidney stones Obstructive sleep apnea She does not use a CPAP. Osteoarthritis Seasonal allergies Surgical History Surgical History History of 3 sections History of Achilles tendon repair Right. History of breast implant History of cholecystectomy History of thoracotomy Resection of benign pleural schwannoma. History of tonsillectomy and uvula removed 10 years ago due to large tonsils and small airway Family History Family History Father Acute myocardial infarction Hypertension Sibling Asthma History of blood clots Cerebrovascular accident Vascular dementia Hypertension Atrial fibrillation Diabetes mellitus Mother Hypertension Diabetes mellitus Social History Social History Social History: The patient lives in [place] with her significant other. She is originally from [place]. She has 3 grown children. 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 She drinks alcohol socially and in moderation. No illicit drug use. She designates Kitty Cooley (sibling) as her surrogate decision maker and she wishes to be a full code. Smoking status: Never smoker Alcohol intake: never Substance use: never Substance use type: does not use Living arrangements: with family Spiritual care concerns: No Anes - Eval Final PreProcedure Day of Procedure 01/26/23 13:34 Patient weight: obese Heart: regular rate and rhythm Lungs: clear to auscultation Airway: Mallampati scale class II Neurological: alert and oriented Last oral intake: >/= 8 hours ASA classification: III Emergent: no Anesthetic plan: proceed Anesthesia type and monitoring: general GIVS and standard monitoring Results Review: All pre-operative results and documents have been reviewed as part of the pre-operative evaluation. Informed Consent: The patient's anesthetic plan and its attendant risks and benefits were discussed with
--- NOTE | 2023-01-26 14:00 | PM.HPGS ---
History of Present Illness History of Present Illness Consent: Risks, benefits, and alternatives have been discussed and questions answered. Patient agrees to proceed with procedure. Chief complaint: Hx colon polyps Narrative: Francheska Cooley is a 67 year old female with colon polyp 5 years ago Review of Systems Constitutional: Constitutional: Denies headache(s) and Denies weakness Eyes: Eyes: Denies blurry vision ENT: Reports Normal hearing present, Denies headache(s) and Denies neck pain Cardiovascular: Cardiovascular: Denies chest pain and Denies dyspnea Respiratory: Respiratory: Denies dyspnea Gastrointestinal: Gastrointestinal: Reports no additional gastrointestinal complaints Genitourinary: Genitourinary: Denies dysuria Musculoskeletal: Musculoskeletal: Denies neck pain Integumentary/Breasts: Skin/Breast: Denies dry skin Neurologic: Reports Normal hearing present, Denies headache(s) and Denies weakness Psychiatric: Psychiatric: Denies anxiety Endocrine: Endocrine: Denies change in body appearance Hematologic/Lymphatic: Hematologic/Lymphatic: Denies easy bleeding Allergic/Immunologic: Allergic/Immunologic: Denies urticaria PMFSH Past Medical History Medical History (Updated 01/26/23 @ 14:02 by Alok Escoto MD) Colon polyps COVID-19 (02/2021) Depression with anxiety Dyslipidemia Eczema History of benign schwannoma Kidney stones Obstructive sleep apnea She does not use a CPAP. Osteoarthritis Seasonal allergies Surgical History Surgical History History of 3 sections History of Achilles tendon repair Right. History of breast implant History of cholecystectomy History of thoracotomy Resection of benign pleural schwannoma. History of tonsillectomy and uvula removed 10 years ago due to large tonsils and small airway Family History Family History Father Acute myocardial infarction Hypertension Sibling Asthma History of blood clots Cerebrovascular accident Vascular dementia Hypertension Atrial fibrillation Diabetes mellitus Mother Hypertension Diabetes mellitus Social History Social History Social History: The patient lives in [place] with her significant other. She is originally from [place]. She has 3 grown children. 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 She drinks alcohol socially and in moderation. No illicit drug use. She designates Albenys Lenora (sibling) as her surrogate decision maker and she wishes to be a full code. Smoking status: Never smoker Alcohol intake: never Substance use: never Substance use type: does not use Living arrangements: with family Spiritual care concerns: No Meds Home Medications and Allergies Home Medications Medication Instructions Recorded Confirmed Type aspirin 81 mg tablet,delayed 81 mg PO HS 07/01/19 01/26/23 History release (Adult Low Dose Aspirin) cetirizine 10 mg capsule (Zyrtec) 10 mg PO DAILY 07/01/19 01/26/23 History cholecalciferol (vitamin D3) 125 125 mcg PO HS 07/01/19 01/26/23 History mcg (5,000 unit) tablet (Vitamin D3) fluticasone propionate 50 1 spray intranasal BID PRN 07/01/19 01/26/23 History mcg/actuation nasal Allergic Symptoms spray,suspension montelukast 10 mg tablet 10 mg PO DAILY 07/01/19 01/26/23 History alprazolam 0.25 mg tablet 0.5 mg PO TID PRN Anxiety 03/23/21 01/26/23 History pantoprazole 40 mg tablet,delayed 40 mg PO QAM 30 days #30 tabs 03/24/21 01/26/23 Rx release Allergies Allergy/AdvReac Type Severity Reaction Status Date / Time cephalexin Allergy Severe Hives / Verified 01/26/23 13:20 Red Face Vital Signs Vital Signs - 24 hr 01/26/23 13:10 Temperature 97.7 F Pulse Rate 66 Respiratory Rat
[2023-01-26 14:20] VITALS: BP 99/57; PULSE 74; RESP 24; O2SAT 99
[2023-01-26 14:30] VITALS: BP 101/65; PULSE 76; RESP 20; O2SAT 98
[2023-01-26 14:40] VITALS: BP 124/83; PULSE 66; RESP 20; O2SAT 97
== END 2023-01-26 14:47 | disposition home or self-care (01) ==
PROVIDERS: PCP Family Medicine; Visit Provider Internal Medicine Gastroenterology
PROC: 0DJD8ZZ Inspection of Lower Intestinal Tract, Via Natural or Artificial Opening Endoscopic (ICD-10-PCS; CPT 45378; principal; 2023-01-26 13:30)
DX: Z12.11 Encounter for screening for malignant neoplasm of colon (principal); K64.8 Other hemorrhoids; K64.4 Residual hemorrhoidal skin tags; Z86.010 Personal history of colon polyps; E78.5 Hyperlipidemia, unspecified; G47.33 Obstructive sleep apnea (adult) (pediatric)
CPT/HCPCS: 45378; J2001; J2704; J7120

== ENCOUNTER 2024-01-14 07:07 | Outpatient (CLI) | payer OTHER, SELFPAY ==
--- NOTE | ~2024-01-14 | MR_ITS ---
MRI of the right ankle Clinical history: Chronic pain Technique: Coronal proton-density and proton-density fat-sat images, axial proton-density and proton- density fat-sat images, and sagittal proton-density and proton-density fat-sat images were acquired. Findings: Syndesmotic ligaments are intact. Anterior and posterior talofibular ligaments, and calcane ofibular ligament are intact. Deltoid ligament is intact. Medial flexor tendons and anterior extensor tendons are intact. There is extensive low signal thicken ing of the Achilles tendon, which could reflect diffuse tendinosis or possibly postsurgical change at the relevant history. No partial or full-thickness tear of the Achilles tendon seen. There is appare nt complete tear of the distal peroneus longus tendon, which is retracted to the level of the tip of the lateral malleolus. Peroneus brevis tendon appears intact. No osteochondral lesion of the talar dome seen. Bone marrow signals and joint spaces are intact. Subt alar joint effusion present. Plantar fascia intact. Tiny plantar calcaneal spur present. No other sof t tissue mass or fluid collection evident. Impression: Complete rupture of the peroneus longus tendon, which is retracted to the level of the tip of the lat eral malleolus. Diffuse low signal tendinosis of the Achilles tendon versus possibly postoperative change. Correlate for any relevant surgical history. Subtalar joint effusion. Reviewed, dictated and finalized at [facility]. IC RELATIONS REPRESENTATIVE Impression: Complete rupture of the peroneus longus tendon, which is retracted to the level of the tip of the lateral malleolus. Diffuse low signal tendinosis of the Achilles tendon versus possibly postoperat matt change. Correlate for any relevant surgical history. Subtalar joint effusion.
== END 2024-01-14 07:08 | disposition home or self-care (01) ==
PROVIDERS: PCP Nurse Practitioner Family; Visit Provider Orthopaedic Surgery
DX: S86.311A Strain of muscle(s) and tendon(s) of peroneal muscle group at lower leg level, right leg, initial encounter (principal); M25.471 Effusion, right ankle
CPT/HCPCS: 73721

== ENCOUNTER 2024-01-15 12:44 | Outpatient (CLI) | payer OTHER, SELFPAY ==
--- NOTE | ~2024-01-15 | MR_ITS ---
EXAMINATION: MR humerus RT wo/w con DATE: 01/15/2024 13:48 INDICATION: Right arm pain TECHNIQUE: Magnetic resonance imaging (MRI) of the right upper arm/humerus was performed without and with 13 mL Multihance intravenous contrast. Sequences included axial, sagittal and coronal T1-weight ed FSE and fluid sensitive FSE STIR, axial T1-weighted FS FSE and postcontrast axial and coronal T1-w eighted FS FSE. COMPARISON: None. FINDINGS: There is superior subluxation of the humeral head with respect to the glenoid with significant narrow ing of the subacromial space. This is likely secondary to what appears to be a full-thickness rotator cuff tear of the supraspinatus tendon however evaluation of the smaller structures at the right shou lder and right elbow is significantly more limited than on a standard shoulder or elbow MRI due to th e significantly larger [id number] imaging. Small right glenohumeral joint effusion which extends i nto the deep subscapular recess as well as a full-thickness rotator cuff tear with a minimal amount f luid in the subacromial/subdeltoid bursa. Likely osteoarthritis related subarticular cystlike change versus intraosseous ganglion cyst at the l ateral humeral condyle which appears to arise near the posterior margin of the articular surface and underlying the posterior articular surface of the olecranon. No elbow joint effusion. The tendons abo ut the right elbow appear normal. Bone marrow signal is otherwise normal. No fracture or pathologic marrow replacing process. The savita er indicating the site of maximal pain last along the lateral aspect of the mid right upper arm. The musculature of the right upper arm demonstrate normal bulk and signal. Partially visualized right slade ast implant. No pathologically enlarged right axillary lymphadenopathy. The neurovascular structures at the right axilla and right upper arm are normal. IMPRESSION: 1. Likely full-thickness supraspinatus tendon tear with subluxation of the humeral head with respect to the glenoid and secondary narrowing of the subacromial space. Assessment is limited by the larger [id number] which includes the entire upper arm and could consider dedicated right shoulder MRI for further evaluation as clinically indicated. 2. 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 Reviewed, dictated and finalized at location A. 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 Likely full-thickness supraspinatus tendon tear with subluxation of the ignacio ral head with respect to the glenoid and secondary narrowing of the subacromial space. Assessment is limited by the larger [id number] which includes the en tire upper arm and could consider dedicated right shoulder MRI for further eval uation as clinically indicated. 2. 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
== END 2024-01-15 12:45 | disposition home or self-care (01) ==
LOC: MICIMG 12:45
PROVIDERS: PCP Nurse Practitioner Family; Visit Provider Orthopaedic Surgery
DX: M79.601 Pain in right arm (principal)
CPT/HCPCS: 73220; A9577